=== PATIENT | female | born 1975 | race Caucasian/White ===

== ENCOUNTER 2016-11-23 20:09 | Emergency (ER) | payer OTHER ==
[~2016-11-23] VITALS: Ht 160 cm; Wt 104.0 kg
[~2016-11-23 20:09] MED LIST: BACTDS PO; CEPH-443 PO; HYDR-3498 PO; IBUP800T25 PO
[2016-11-23 20:27] VITALS: Ht 160 cm; Wt 104.0 kg
[2016-11-23] MEDS ORDERED: ALBUTEROL 0.083% (NEB) 2.5 MG/3 ML AMP HHN ONE (22:30)
[2016-11-23] MEDS ORDERED: ACETAMINOPHEN 325 MG TAB PO ONE (22:30)
[2016-11-23] MEDS ORDERED: IPRATROPIUM (NEB) 0.5 MG/2.5 ML AMP HHN ONE (22:30)
--- NOTE | 2016-11-23 23:58 | RADRPT ---
PROCEDURE: XR Chest. CLINICAL INDICATION: cough, fever TECHNIQUE: Single AP portable chest COMPARISON: None. FINDINGS: The cardiomediastinal silhouette is within normal limits..The lungs are clear though pleural effusio n or focal consolidation. The osseous structures and soft tissues are unremarkable. IMPRESSION: No evidence for active cardiopulmonary disease. RPTAT:AAJJ Jeremias Serrato Physician Date Time Electronically viewed and signed by Physician Antonella on 11/23/2016 23:58 EMIL/
--- NOTE | 2016-11-24 00:17 | ERD ---
ER Documentation Chief Complaint Date/Time DATE: 11/24/16 TIME: 00:16 Chief Complaint PRODUCTIVE COUGH, CONGESTION AND FEVERS OF UP TO 102 AT HOME X 2 WKS. HPI Patient is a 41-year-old female who presents to the ED with a productive and dry cough for 2 weeks. She states that she also has nasal congestion and fevers. She said that her last fever was 102.2 days ago. She denies fevers today. She denies abdominal pain, nausea or diarrhea. She states that she has shortness of breath due to her cough. She states that she also has a runny nose. She denies neck pain or stiffness or headache. She also states that she had 2 episodes of non bloody non bilious emesis. She denies chest pain or difficulty breathing. She denies back pain. She denies leg pain or swelling. She denies chest pain, shortness of breath or difficulty breathing. She denies recent travel or recent surgery or use of OCPs. ROS All systems reviewed and are negative except as per history of present illness. Medications Home Meds Active Scripts Prednisone* (Prednisone*) 20 Mg Tab, 40 MG PO DAILY for 4 Days, TAB Prov:SAMUEL GIVENS PA-C 11/24/16 Azithromycin* (Zithromax*) 250 Mg Tablet, 250 MG PO .MariumPACK DIRECTED, #6 TAB TAKE 500 MG (2 TABS) THE FIRST DAY THEN 250 MG (1 TAB) DAYS 2-5 Prov:SAMUEL GIVENS PA-C 11/24/16 Benzonatate* (Tessalon Perle*) 100 Mg Capsule, 100 MG PO Q8H Y for COUGH for 14 Days, CAP Prov:SAMUEL GIVENS PA-C 11/24/16 Dextromethorphan Hb-Promethazine Hcl (Promethazine DM Syrup) 473 Ml Syrup, 2.5 ML PO Q6H Y for COUGH, #4 OZ Prov:SAMUEL GIVENS PA-C 11/24/16 Hydrocodone Bit-Acetaminophen* ([place]*) 5-325 Mg Tab, 1 TAB PO Q6 Y for PAIN, # 20 TAB Prov:TRISTEN ROBBINS 03/16/16 Hydrocodone Bit-Acetaminophen* ([place]*) 5-325 Mg Tab, 1 TAB PO Q6 Y for SEVERE PAIN LEVEL 7-10, #7 TAB Prov:ARIEL MCNEAL. DIRECTOR [employer] 03/14/16 Cephalexin* (Keflex*) 500 Mg Capsule, 500 MG PO QID for 7 Days, CAP Prov:ARIEL MCNEAL X. DIRECT[employer] 03/14/16 Sulfamethoxazole-Trimethoprim* (Bactrim* DS) 800-160 Mg Tab, 1 TAB PO BID for 7 Days, TAB Prov:ARIEL MCNEAL X. DIRECT[employer] 03/14/16 Ibuprofen* (Motrin*) 800 Mg Tab, 800 MG PO Q8, #30 TAB Prov:ARIEL MCNEAL. DIRECTOR [employer] 03/14/16 Allergies Allergies: Coded Allergies: No Known Allergy (Unverified , 11/26/12) PMhx/Soc Medical and Surgical Hx: pt denies Medical Hx, pt denies Surgical Hx History of Surgery: No Anesthesia Reaction: No Hx Neurological Disorder: No Hx Respiratory Disorders: No Hx Cardiac Disorders: No Hx Psychiatric Problems: No Hx Miscellaneous Medical Probl: No Hx Alcohol Use: No Hx Substance Use: No Hx Tobacco Use: No Physical Exam Vitals Vital Signs Date Time Temp Pulse Resp B/P Pulse Ox O2 Delivery O2 Flow Rate FiO2 11/24/16 01:56 99.3 78 20 132/67 100 Room Air 11/23/16 23:20 100.1 107 20 99/54 98 Room Air 11/23/16 22:59 85 20 97 21 11/23/16 20:27 100.0 111 19 134/80 96 Physical Exam GENERAL: Well-developed, well-nourished female. Appears in no acute distress. HEAD: Normocephalic, atraumatic. EYES: Pupils are equally reactive bilaterally. EOMs grossly intact. No conjunctival erythema. ENT: Moist mucous membranes. No uvula deviation. No kissing tonsils. No exudates. NECK: Supple. No lymphadenopathy or thyromegaly. No meningismus. negative kernig. negative brudinski. LUNG: Clear to auscultation bilaterally. No rhonchi, rales or coarse breath sounds. wheezing bilateral HEART: Regular rate and rhythm. No murmurs, rubs or gallops. ABDOMEN: No scars, ecchymosis or rashes noted. Soft, nontender, and nondistended. Positive bowel sounds in all four quadrants. No rebound tenderness , no guarding. (-) McBurneys point tenderness. No CVA tenderness. BACK: No midline tenderness. Extremities: Equal pulses bilaterally. No peripheral clubbing, cyanosis or edema. No unilateral leg swelling. negative osvaldo sign. NEUROLOGIC: Alert and oriented. Moving all four extremities. 5/5 strength in all extremities. Normal speech. Steady gait. SKIN: Normal color. Warm and dry. No rashes or lesions. Capillary refill < 2 seconds Results 24 hrs Current Medications Medications (Trade) Dose Ordered Sig/Elle Route PRN Reason Start Time Stop Time Status Last Admin Dose Admin Acetaminophen (Tylenol Tab) 650 mg ONCE ONCE PO 11/23/16 22:30 11/23/16 22:32 DC 11/23/16 22:45 Albuterol (Proventil 0.083% (Neb)) 5 mg ONCE ONCE HHN 11/23/16 22:30 11/23/16 22:32 DC 11/23/16 22:59 Ipratropium [place] (Atrovent 0.02% (Neb)) 0.5 mg ONCE ONCE HHN 11/23/16 22:30 11/23/16 22:32 DC 11/23/16 22:58 Acetaminophen (Tylenol Supp) 650 mg ONCE ONCE [place] 11/24/16 00:30 11/24/16 00:30 DC Acetaminophen (Tylenol Tab) 650 mg ONCE ONCE PO 11/24/16 00:30 11/24/16 00:31 DC 11/24/16 00:46 Procedures/MDM ER COURSE: I kept the patient and/or family informed of laboratory and diagnostic imaging results throughout the emergency room course. EKG, MONITORS, & DIAGNOSTIC IMAGING: [place] [id number] Radiology Main Line: [phone] DIAGNOSTIC IMAGING REPORT Patient: GANESH GILLETTE : 1975 Age: 41 Sex: F MR #: [id number] DOS: 11/23/162227 Ordering MD: SAMUEL GIVENS PA-C Location: [facility] Room/Bed: PROCEDURE: XR Chest. CLINICAL INDICATION: cough, fever TECHNIQUE: Single AP portable chest COMPARISON: None. FINDINGS: The cardiomediastinal silhouette is within normal limits..The lungs are clear though pleural effusion or focal consolidation. The osseous structures and soft tissues are unremarkable. IMPRESSION: No evidence for active cardiopulmonary disease. RPTAT:AAJJ Physician Antonella Date Time Electronically viewed and signed by Physician Antonella on 11/23/2016 23:58 EMIL/ CC: SAMUEL GIVENS PA-C PROCEDURES: RT consult. Albuterol and atrovent given. Patient stated improvement in symptoms. MEDICATIONS: Tylenol. Breathing treatment. Patient tolerated medication well with no adverse reaction. Patient seen improvement in her coughing symptoms after breathing treatment. MEDICAL DECISION MAKING: This is a 41-year-old female who presents with cough x 2 weeks Vital signs were reviewed. Patient has temperature of 100.1 Patient is not hypoxic. Patient is not toxic or ill-appearing. Patient likely has cough of uncertain etiology. Low suspicion for pneumonia, PE, pneumothorax, ACS, epiglottitis, obstruction, TB, pertussis, meningitis, sepsis. Her increase in heart rate of 107 is likely related to vomiting and coughing and her fever. I have low suspicion for PE or DVT. Patient has not had recent travel, no leg pain or swelling. Cannot rule out PERC criteria as patient has a increase in heart rate of 107. However I have low suspicion for PE or DVT. I have consulted with Dr. Aranda regarding this patient who has reviewed her vitals and imaging studies. Low suspicion for cardiac emergencies. Low suspicion for ACS, PE, AAA, dissection, DVT DISCHARGE: At this time, patient is stable for discharge and outpatient management with no new complaints during the ER course. Patient was sent home with azithromycin, tessalon perles, promethazine dm and prednisone. Patient will be discharged home with instructions to recheck for new or worsening symptoms such as fever, nausea, weakness, LOC and to follow up with primary care in the next 1-2 days. Patient was advised to return to the ER for any new or worsening symptoms. Plan was discussed and patient and/or family understands and agrees. Home instructions were given. Departure Diagnosis: Primary Impression: Cough Condition: Stable SAMUEL GIVENS PA-C Nov 24, 2016 00:17
[2016-11-24] MEDS ORDERED: BENZ100C70 PO (00:24)
[2016-11-24] MEDS ORDERED: AZIT250T94 PO (00:24)
[2016-11-24] MEDS ORDERED: D-ME473S18 PO (00:24)
[2016-11-24] MEDS ORDERED: ACETAMINOPHEN 325 MG SUPP PR ONE (00:30)
[2016-11-24] MEDS ORDERED: ACETAMINOPHEN 325 MG TAB PO ONE (00:30)
[2016-11-24] MEDS ORDERED: PRED20TA PO (00:32)
[2016-11-24 01:56] VITALS: BP 132/67; PULSE 78; RESP 20; TEMP 99.3
== END 2016-11-24 02:03 | disposition home or self-care (01) ==
LOC: FTE 20:09
DX: R05 Cough (principal)
CPT/HCPCS: 71010; 94664; Z7502; Z7610

== ENCOUNTER 2016-12-31 10:07 | Emergency (ER) | payer OTHER ==
[~2016-12-31] VITALS: Ht 160 cm; Wt 100.0 kg
[~2016-12-31 10:07] MED LIST changes: +AZIT250T94 PO; +BENZ100C70 PO; +D-ME473S18 PO; +PRED20TA PO
[2016-12-31 10:09] VITALS: Ht 160 cm; Wt 100.0 kg
[2016-12-31] MEDS ORDERED: ALBUTEROL 0.5% (NEB) 2.5 MG/0.5 ML AMP HHN STA (10:19)
[2016-12-31] MEDS ORDERED: IPRATROPIUM (NEB) 0.5 MG/2.5 ML AMP HHN ONE (10:30)
[2016-12-31] MEDS ORDERED: METHYLPREDNISOLONE 125 MG INJ IM ONE (10:30)
--- NOTE | 2016-12-31 11:01 | RADRPT ---
PROCEDURE: XR Chest. CLINICAL INDICATION: Cough, shortness of breath TECHNIQUE: Single frontal view of the chest was obtained COMPARISON: 11/23/16 FINDINGS: The heart and mediastinum are within normal limits. The lungs are clear. There is no pleural effusion or pneumothorax. RPTAT: AA IMPRESSION: No acute disease. .Vic Fournier MD, MD Date Time Electronically viewed and signed by .Vic Fournier MD, MD on 12/31/2016 11:00 .S/
[2016-12-31] MEDS ORDERED: PRED20TA PO (11:36)
[2016-12-31] MEDS ORDERED: ALBU18HF INHALATION (11:36)
--- NOTE | 2016-12-31 11:38 | ERD ---
ER Documentation Chief Complaint Date/Time DATE: 12/31/16 TIME: 11:37 Chief Complaint cough , sob x 3days HPI This 41-year-old female presents with complaints of coughing spells and possible wheezing for last 3 days. She denies fevers or chest pain. She states that she does have productive sputum. She denies hemoptysis. Denies vomiting, abdominal pain, chest pain. ROS All systems reviewed and are negative except as per history of present illness. Medications Home Meds Active Scripts Albuterol Sulfate* (Ventolin HFA*) 18 Gm Hfa.aer.ad, 2 PUFF INHALATION Q4H, #1 INHALER Prov:AILYN DUTTA MD 12/31/16 Prednisone* (Prednisone*) 20 Mg Tab, 60 MG PO DAILY for 5 Days, TAB 60 mg by mouth for 2 days then 40 mg by mouth for 3 days Prov:AILYN DUTTA MD 12/31/16 Prednisone* (Prednisone*) 20 Mg Tab, 40 MG PO DAILY for 4 Days, TAB Prov:SAMUEL GIVENS PA-C 11/24/16 Azithromycin* (Zithromax*) 250 Mg Tablet, 250 MG PO .ZPACK DIRECTED, #6 TAB TAKE 500 MG (2 TABS) THE FIRST DAY THEN 250 MG (1 TAB) DAYS 2-5 Prov:SAMUEL GIVENS PA-C 11/24/16 Benzonatate* (Tessalon Perle*) 100 Mg Capsule, 100 MG PO Q8H Y for COUGH for 14 Days, CAP Prov:SMAUEL GIVENS PA-C 11/24/16 Dextromethorphan Hb-Promethazine Hcl (Promethazine DM Syrup) 473 Ml Syrup, 2.5 ML PO Q6H Y for COUGH, #4 OZ Prov:SAMUEL GIVENSC 11/24/16 Hydrocodone Bit-Acetaminophen* ([place]*) 5-325 Mg Tab, 1 TAB PO Q6 Y for PAIN, # 20 TAB Prov:TRISTEN ROBBINS 03/16/16 Hydrocodone Bit-Acetaminophen* ([place]*) 5-325 Mg Tab, 1 TAB PO Q6 Y for SEVERE PAIN LEVEL 7-10, #7 TAB Prov:ARIEL MCNEAL ENGLISH L[employer]ER 03/14/16 Cephalexin* (Keflex*) 500 Mg Capsule, 500 MG PO QID for 7 Days, CAP Prov:ARIEL MCNEAL. ENGLISH [employer]ER 03/14/16 Sulfamethoxazole-Trimethoprim* (Bactrim* DS) 800-160 Mg Tab, 1 TAB PO BID for 7 Days, TAB Prov:FREDISARIEL Scarlet. ENGLISH [employer]ER 03/14/16 Ibuprofen* (Motrin*) 800 Mg Tab, 800 MG PO Q8, #30 TAB Prov:ARIEL MCNEAL. ENGLISH [employer]ER 03/14/16 Allergies Allergies: Coded Allergies: No Known Allergy (Unverified , 11/26/12) PMhx/Soc History of Surgery: No Anesthesia Reaction: No Hx Neurological Disorder: No Hx Respiratory Disorders: No Hx Cardiac Disorders: No Hx Psychiatric Problems: No Hx Miscellaneous Medical Probl: No Hx Alcohol Use: No Hx Substance Use: No Hx Tobacco Use: No Physical Exam Vitals Vital Signs Date Time Temp Pulse Resp B/P Pulse Ox O2 Delivery O2 Flow Rate FiO2 12/31/16 10:48 86 20 98 Pulse Ox 8.0 12/31/16 10:09 98.2 68 22 122/72 93 Physical Exam Const: [] Alert, [id number] per Head: Atraumatic Eyes: Normal Conjunctiva ENT: Normal External Ears, Nose and Mouth. Neck: Full range of motion..~ No meningismus. Resp: Clear to auscultation bilaterally. Diffuse wheezing without rales or retractions. Cardio: Regular rate and rhythm, no murmurs Abd: Soft, non tender, non distended. Normal bowel sounds Skin: No petechiae or rashes Back: No midline or flank tenderness Ext: No cyanosis, or edema Neur: Awake and alert Psych: Normal Mood and Affect Results 24 hrs Current Medications Medications (Trade) Dose Ordered Sig/Elle Route PRN Reason Start Time Stop Time Status Last Admin Dose Admin Methylprednisolone Sodium Succinate (Solu-Medrol) 125 mg ONCE ONCE IM 12/31/16 10:30 12/31/16 10:31 DC 12/31/16 10:24 Albuterol (Proventil 0.5% (Neb)) 5 mg ONCE STAT HHN 12/31/16 10:19 12/31/16 10:21 DC 12/31/16 10:45 Ipratropium [place] (Atrovent 0.02% (Neb)) 0.5 mg ONCE ONCE HHN 12/31/16 10:30 12/31/16 10:31 DC 12/31/16 10:45 Procedures/MDM Chest X-ray 1V Interpreted by me: Soft Tissue: No acute abnormalities Bones: No acute abnormalities Mediastinum/Cardiac Silhouette/Lungs: [No acute abnormalities]. Impression- normal 1 view chest x-ray Patient was given Solu-Medrol 125 mg IM. Patient was given albuterol 5 mg hand- held nebulizer as well as Atrovent and had improved breath sounds felt much better after observation treatment. Patient has signs and symptoms of acute URI or bronchitis with wheezing. She has no history of asthma. She will treated with a course of prednisone, Ventolin and Zithromax at home. Patient shows no evidence of hypoxemia, respiratory distress or chest pain. The patient was stable with no new complaints during the ER course. Clinically, there is no current evidence to suggest meningitis, sepsis, acute abdomen, pneumonia, acute coronary syndrome, pulmonary embolism, or any other emergent condition appearing to require further evaluation or hospitalization. The patient should certainly return for any new or worsening symptoms per the aftercare instructions. They should otherwise follow-up with her primary care doctor for reevaluation this week. Departure Diagnosis: Primary Impression: Wheezing Additional Impression: URI, acute Condition: Stable Patient Instructions: Uri, Viral W/ Wheezing (Adult) Additional Instructions: Likely viral illness may last 3-5 days. Recheck for new or worsening symptoms or primary care doctor. AILYN DUTTA MD Dec 31, 2016 11:38
[2016-12-31] MEDS ORDERED: AZIT250T94 PO (11:39)
[2016-12-31 12:10] VITALS: BP 124/70; PULSE 74; RESP 20; TEMP 98.4
== END 2016-12-31 12:10 | disposition home or self-care (01) ==
LOC: FTE 10:07
DX: R06.2 Wheezing (principal); J06.9 Acute upper respiratory infection, unspecified
CPT/HCPCS: 71010; 94664; 94760; 96372; J2930; Z7502; Z7610

== ENCOUNTER 2017-01-17 20:35 | Emergency (ER) | payer OTHER ==
[~2017-01-17] VITALS: Ht 160 cm; Wt 81.1 kg
[~2017-01-17 20:35] MED LIST changes: +ALBU18HF INHALATION
[2017-01-17 21:43] VITALS: Ht 160 cm; Wt 81.1 kg
[2017-01-17] MEDS ORDERED: METHYLPREDNISOLONE 125 MG INJ IM STA (23:30)
[2017-01-17] MEDS ORDERED: ALBUTEROL 0.5% (NEB) 2.5 MG/0.5 ML AMP INH STA (23:30)
[2017-01-17] MEDS ORDERED: IPRATROPIUM (NEB) 0.5 MG/2.5 ML AMP NEB STA (23:30)
--- NOTE | 2017-01-17 23:41 | ERD ---
ER Documentation Chief Complaint Date/Time DATE: 01/17/17 TIME: 23:38 Chief Complaint COUGH/SOB FEVER X 3 DAYS HPI 41-year-old female presents here in emergency department for complaints of cough and wheezing for 3 days, fever on-and-off. Patient has been having dry cough, does not cough up any phlegm or blood. Patient has wheezing episodes and episodes of shortness of breath. Patient was seen here 3 weeks ago, was diagnosed possible bronchitis, finished azithromycin, was using inhaler only with mild relief. Patient does not have any sick contacts. Patient denies any dyspnea on exertion or dyspnea on lying down. Patient denies any palpitations or regular heartbeat. Patient denies any dizziness. ROS All systems reviewed and are negative except as per history of present illness. Medications Home Meds Active Scripts Azithromycin* (Zithromax*) 250 Mg Tablet, 250 MG PO .ZPACK DIRECTED, #6 TAB TAKE 500 MG (2 TABS) THE FIRST DAY THEN 250 MG (1 TAB) DAYS 2-5 Prov:AILYN DUTTA MD 12/31/16 Albuterol Sulfate* (Ventolin HFA*) 18 Gm Hfa.aer.ad, 2 PUFF INHALATION Q4H, #1 INHALER Prov:AILYN DUTTA MD 12/31/16 Prednisone* (Prednisone*) 20 Mg Tab, 60 MG PO DAILY for 5 Days, TAB 60 mg by mouth for 2 days then 40 mg by mouth for 3 days Prov:AILYN DUTTA MD 12/31/16 Prednisone* (Prednisone*) 20 Mg Tab, 40 MG PO DAILY for 4 Days, TAB Prov:SAMUEL GIVENS PA-C 11/24/16 Azithromycin* (Zithromax*) 250 Mg Tablet, 250 MG PO .ZPACK DIRECTED, #6 TAB TAKE 500 MG (2 TABS) THE FIRST DAY THEN 250 MG (1 TAB) DAYS 2-5 Prov:SAMUEL GIVENS PA-C 11/24/16 Benzonatate* (Tessalon Perle*) 100 Mg Capsule, 100 MG PO Q8H Y for COUGH for 14 Days, CAP Prov:SAMUEL GIVENS PA-C 11/24/16 Dextromethorphan Hb-Promethazine Hcl (Promethazine DM Syrup) 473 Ml Syrup, 2.5 ML PO Q6H Y for COUGH, #4 OZ Prov:SAMUEL GIVENSC 11/24/16 Hydrocodone Bit-Acetaminophen* ([place]*) 5-325 Mg Tab, 1 TAB PO Q6 Y for PAIN, # 20 TAB Prov:TRISTEN ROBBINS 03/16/16 Hydrocodone Bit-Acetaminophen* ([place]*) 5-325 Mg Tab, 1 TAB PO Q6 Y for SEVERE PAIN LEVEL 7-10, #7 TAB Prov:AREIL MCNEAL. INSPECTOR [employer]AGER 03/14/16 Cephalexin* (Keflex*) 500 Mg Capsule, 500 MG PO QID for 7 Days, CAP Prov:FREDISARIEL X. INSPECTOR AND [employer]ER 03/14/16 Sulfamethoxazole-Trimethoprim* (Bactrim* DS) 800-160 Mg Tab, 1 TAB PO BID for 7 Days, TAB Prov:MARGRET MCNEALEN X. INSPECTOR AND [employer] P[employer]AGER 03/14/16 Ibuprofen* (Motrin*) 800 Mg Tab, 800 MG PO Q8, #30 TAB Prov:ARIEL MCNEAL. INSPECTOR AND [employer]ER 03/14/16 Allergies Allergies: Coded Allergies: No Known Allergy (Unverified , 01/17/17) PMhx/Soc Medical and Surgical Hx: pt denies Medical Hx, pt denies Surgical Hx History of Surgery: No Anesthesia Reaction: No Hx Neurological Disorder: No Hx Respiratory Disorders: No Hx Cardiac Disorders: No Hx Psychiatric Problems: No Hx Miscellaneous Medical Probl: No Hx Alcohol Use: No Hx Substance Use: No Hx Tobacco Use: No Smoking Status: Never smoker FmHx Family History: No coronary disease, No diabetes, No other Physical Exam Vitals Vital Signs Date Time Temp Pulse Resp B/P Pulse Ox O2 Delivery O2 Flow Rate FiO2 01/17/17 23:47 98 20 97 21 01/17/17 21:43 98.9 99 24 116/69 95 Physical Exam GENERAL: The patient is well developed and appropriate for usual state of health, in no apparent distress. CHEST: Clear to auscultation bilaterally. There are no rales, wheezes or rhonchi. HEART: Regular rate and rhythm. No murmurs, clicks, rubs or gallops. No S3 or S4. ABDOMEN: Soft, nontender and nondistended. Good bowel sounds. No rebound or guarding. No gross peritonitis. No gross organomegaly or masses. No Man sign or McBurney point tenderness. BACK: No midline or flank tenderness. EXTREMITIES: Equal pulses bilaterally. There is no peripheral clubbing, cyanosis or edema. No focal swelling or erythema. Full range of motion. Grossly neurovascularly intact. NEURO: Alert and oriented. Cranial nerves 2-12 intact. Motor strength in all 4 extremities with 5/5 strength. Sensation grossly intact. Normal speech and gait. SKIN: There is no apparent rash or petechia. The skin is warm and dry. HEMATOLOGIC AND LYMPHATIC: There is no evidence of excessive bruising or lymphedema. No gross cervical, axillary, or inguinal lymphadenopathy. Results 24 hrs Current Medications Medications (Trade) Dose Ordered Sig/Elle Route PRN Reason Start Time Stop Time Status Last Admin Dose Admin Ipratropium [place] (Atrovent 0.02% (Neb)) 0.5 mg ONCE STAT NEB 01/17/17 23:30 01/17/17 23:31 DC 01/17/17 23:47 Albuterol (Proventil 0.5% (Neb)) 10 mg ONCE STAT INH 01/17/17 23:30 01/17/17 23:31 DC 01/17/17 23:47 Methylprednisolone Sodium Succinate (Solu-Medrol) 125 mg ONCE STAT IM 01/17/17 23:30 01/17/17 23:31 DC 01/18/17 00:09 Breathing treatment of albuterol and Atrovent Solu-Medrol IM injection was given here in emergency department, after treatment, patient's lungs sounds are clear and patient's oxygenation is better. Patient verbalized feeling much better. PROCEDURE: XR Chest. CLINICAL INDICATION: Exacerbation of asthma. TECHNIQUE: Portable AP view of the chest was obtained. COMPARISON: 12/31/2016 FINDINGS: The cardiomediastinal silhouette is within normal limits. The lungs are clear. The diaphragm is normal in position without hyperinflation. There is no evidence for pleural effusion, pneumothorax or pulmonary vascular congestion. The osseous structures are intact with no evidence for acute abnormality. RPTAT:ASIM IMPRESSION: No evidence for acute intrathoracic pathology or change from 12/31/2016. Physician Tiesha Date Time Electronically viewed and signed by Babak Kessler Physician on 01/18/2017 00:27 JR/ CC: JAKOB SKAGGS NP Procedures/MDM Medical Decision Making: Patient symptoms are most likely consistent with acute bronchitis, which viral in origin. There is low suspicion for Pneumonia at this time since patients lungs sounds are clear, patient O2 saturation is normal and patient doesnt show any respiratory distress. Patients chest xray doesnt show infiltrates or any other cardiopulmonary emergencies at this time. There is low suspicion for other cardiopulmonary emergencies at this time such as CHF, Pulmonary Embolism, Pneumothorax, Aortic Aneurysm or any other cardiopulmonary emergencies at this time. There is low suspicion for sepsis. Patient appears well and is hemodynamically stable. Fever is controlled with medicines. Disposition: Home. Condition: Stable Prescriptions: Zyrtec ibuprofen guaifenesin with codeine albuterol prednisone Instructions: Patient is advised to take medications as prescribed. Patient is advised to rest. Patient advised to increase fluid intake, do humidifier at home and if possible, do salt water gargles. Patient is advised that if symptoms are worse, shortness of breath, uncontrolled fever, stridor, vomiting, worst signs and symptoms to return to emergency department immediately. Otherwise, patient is advised to follow up with primary doctor in 5-7 days. Departure Diagnosis: Primary Impression: Acute bronchitis Bronchitis organism: unspecified organism Qualified Code: J20.9 - Acute bronchitis, unspecified organism Condition: Stable Patient Instructions: Bronchitis With Wheezing (Adult) Additional Instructions: Patient is advised to take medications as prescribed. Patient is advised to rest. Patient advised to increase fluid intake, do humidifier at home and if possible, do salt water gargles. Patient is advised that if symptoms are worse, shortness of breath, uncontrolled fever, stridor, vomiting, worst signs and symptoms to return to emergency department immediately. Otherwise, patient is advised to follow up with primary doctor in 5-7 days. JAKOB SKAGGS NP Jan 17, 2017 23:40
--- NOTE | 2017-01-18 00:27 | RADRPT ---
PROCEDURE: XR Chest. CLINICAL INDICATION: Exacerbation of asthma. TECHNIQUE: Portable AP view of the chest was obtained. COMPARISON: 12/31/2016 FINDINGS: The cardiomediastinal silhouette is within normal limits. The lungs are clear. The diaphragm is nor mal in position without hyperinflation. There is no evidence for pleural effusion, pneumothorax or pulmonary vascular congestion. The osseous structures are intact with no evidence for acute abnorma lity. RPTAT:HJJR IMPRESSION: No evidence for acute intrathoracic pathology or change from 12/31/2016. Physician Tiesha Date Time Electronically viewed and signed by Physician Tiesha on 01/18/2017 00:27 JR/
[2017-01-18] MEDS ORDERED: PRED50TA PO (00:43)
[2017-01-18] MEDS ORDERED: ALBU8.5H3 INH (00:43)
[2017-01-18] MEDS ORDERED: GUAI473L22 PO (00:43)
[2017-01-18] MEDS ORDERED: IBUP-1542 PO (00:43)
[2017-01-18] MEDS ORDERED: CETI10CA PO (00:43)
[2017-01-18 01:14] VITALS: BP 118/67; PULSE 100; RESP 16; TEMP 97.9
== END 2017-01-18 01:15 | disposition home or self-care (01) ==
LOC: FTE 20:35
DX: J20.9 Acute bronchitis, unspecified (principal)
CPT/HCPCS: 71010; 94644; 96372; J2930; Z7502; Z7610

== ENCOUNTER 2017-02-21 12:46 | Emergency (ER) | payer OTHER ==
[~2017-02-21] VITALS: Ht 160 cm; Wt 89.4 kg
[~2017-02-21 12:46] MED LIST changes: +ALBU8.5H3 INH; +CETI10CA PO; +GUAI473L22 PO; +IBUP-1542 PO; +PRED50TA PO
[2017-02-21 12:51] VITALS: Ht 160 cm; Wt 89.4 kg
[2017-02-21] MEDS ORDERED: ALBUTEROL 0.083% (NEB) 2.5 MG/3 ML AMP HHN STA (14:14)
[2017-02-21] MEDS ORDERED: IPRATROPIUM (NEB) 0.5 MG/2.5 ML AMP HHN ONE (14:30)
--- NOTE | 2017-02-21 15:08 | ERD ---
ER Documentation Chief Complaint Date/Time DATE: 02/21/17 TIME: 15:06 Chief Complaint REFILL OF INHALER HPI This is a 41-year-old female that presents to the ER with a cough for the last 2 days. Patient states that she has been experiencing chest pain whenever she coughs whenever she takes a deep breath in. She also complains of shortness of breath and wheezing. Patient was here a month ago and was given an inhaler however she has been out of her inhaler. Patient admits to fever at home. Cough is constant and productive. It is worse at night. There are no sick contacts at home. ROS 12 point review of systems was done, all negative except per HPI. Medications Home Meds Active Scripts Hydrocortisone* Topical (Hydrocortisone* Topical) 1%-28.35 Gm Cream..g., 1 APPLIC TOP Q6 Y for ITCHING, #1 TUB Prov:TRISTEN ROBBINS 02/21/17 Azithromycin* (Zithromax*) 250 Mg Tablet, 250 MG PO .ZPACK DIRECTED, #6 TAB TAKE 500 MG (2 TABS) THE FIRST DAY THEN 250 MG (1 TAB) DAYS 2-5 Prov:TRISTEN ROBBINS 02/21/17 Albuterol Sulfate* (Proair HFA*) 8.5 Gm Hfa.aer.ad, 2 PUFF INH Q4, #1 INHALER Prov:TRISTEN ROBBINS 02/21/17 Ibuprofen* (Motrin*) 600 Mg Tab, 600 MG PO Q6H Y for PAIN AND OR ELEVATED TEMP, #30 TAB Prov:JAKOB SKAGGS NP 01/18/17 Cetirizine Hcl* (Zyrtec*) 10 Mg Capsule, 10 MG PO DAILY, #30 TAB.CHEW Prov:JAKOB SKAGGS NP 01/18/17 Guaifenesin-Codeine Phosphate* (Guaifenesin* AC Cough Syrup) 473 Ml Liquid, 10 ML PO Q4H Y for COUGH, #120 ML Prov:JAKOB SKAGGS NP 01/18/17 Prednisone* (Prednisone*) 50 Mg Tablet, 50 MG PO DAILY, #5 TAB Prov:JAKOB SKAGGS NP 01/18/17 Albuterol Sulfate* (Proair HFA*) 8.5 Gm Hfa.aer.ad, 2 PUFF INH Q4H Y for WHEEZING AND SOB, #1 INHALER Prov:JAKOB SKAGGS NP 01/18/17 Azithromycin* (Zithromax*) 250 Mg Tablet, 250 MG PO .ZPACK DIRECTED, #6 TAB TAKE 500 MG (2 TABS) THE FIRST DAY THEN 250 MG (1 TAB) DAYS 2-5 Prov:AILYN DUTTA MD 12/31/16 Albuterol Sulfate* (Ventolin HFA*) 18 Gm Hfa.aer.ad, 2 PUFF INHALATION Q4H, #1 INHALER Prov:AILYN DUTTA MD 12/31/16 Prednisone* (Prednisone*) 20 Mg Tab, 60 MG PO DAILY for 5 Days, TAB 60 mg by mouth for 2 days then 40 mg by mouth for 3 days Prov:AILYN DUTTA MD 12/31/16 Prednisone* (Prednisone*) 20 Mg Tab, 40 MG PO DAILY for 4 Days, TAB Prov:SAMUEL GIVENS PA-C 11/24/16 Azithromycin* (Zithromax*) 250 Mg Tablet, 250 MG PO .ZPACK DIRECTED, #6 TAB TAKE 500 MG (2 TABS) THE FIRST DAY THEN 250 MG (1 TAB) DAYS 2-5 Prov:SAMUEL GIVENS PA-C 11/24/16 Benzonatate* (Tessalon Perle*) 100 Mg Capsule, 100 MG PO Q8H Y for COUGH for 14 Days, CAP Prov:SAMUEL GIVENS PA-C 11/24/16 Dextromethorphan Hb-Promethazine Hcl (Promethazine DM Syrup) 473 Ml Syrup, 2.5 ML PO Q6H Y for COUGH, #4 OZ Prov:SAMUEL GIVENS PA-C 11/24/16 Hydrocodone Bit-Acetaminophen* ([place]*) 5-325 Mg Tab, 1 TAB PO Q6 Y for PAIN, # 20 TAB Prov:TRISTEN ROBBINS 03/16/16 Hydrocodone Bit-Acetaminophen* ([place]*) 5-325 Mg Tab, 1 TAB PO Q6 Y for SEVERE PAIN LEVEL 7-10, #7 TAB Prov:ARIEL MCNEAL NP 03/14/16 Cephalexin* (Keflex*) 500 Mg Capsule, 500 MG PO QID for 7 Days, CAP Prov:ARIEL MCNEAL. MANAGER OF MERCHANDISING 03/14/16 Sulfamethoxazole-Trimethoprim* (Bactrim* DS) 800-160 Mg Tab, 1 TAB PO BID for 7 Days, TAB Prov:FREDISARIEL X. MANAGER OF MERCHANDISING 03/14/16 Ibuprofen* (Motrin*) 800 Mg Tab, 800 MG PO Q8, #30 TAB Prov:ARIEL MCNEAL. MANAGER OF MERCHANDISING 03/14/16 Allergies Allergies: Coded Allergies: No Known Allergy (Unverified , 02/21/17) PMhx/Soc Medical and Surgical Hx: pt denies Medical Hx, pt denies Surgical Hx History of Surgery: No Anesthesia Reaction: No Hx Neurological Disorder: No Hx Respiratory Disorders: No Hx Cardiac Disorders: No Hx Psychiatric Problems: No Hx Miscellaneous Medical Probl: No Hx Alcohol Use: No Hx Substance Use: No Hx Tobacco Use: No Smoking Status: Never smoker Physical Exam Vitals Vital Signs Date Time Temp Pulse Resp B/P Pulse Ox O2 Delivery O2 Flow Rate FiO2 02/21/17 14:34 69 22 98 21 02/21/17 12:51 98.1 60 18 115/60 99 Physical Exam GENERAL: The patient is well developed and appropriate for usual state of health , in no apparent distress. NECK: No cervical lymphadenopathy. HEENT: Atraumatic. Not erythematous tympanic membranes, mild tonsillar erythema with no exudates, uvular deviation or kissing tonsils. CHEST: Excitatory wheezes in all lung west. No rales rhonchi or crackles. HEART: Regular rate and rhythm. No murmurs, clicks, rubs or gallops. NEURO: Alert and oriented. SKIN: The skin is warm and dry. Results 24 hrs Current Medications Medications (Trade) Dose Ordered Sig/Elle Route PRN Reason Start Time Stop Time Status Last Admin Dose Admin Albuterol (Proventil 0.083% (Neb)) 5 mg ONCE STAT HHN 02/21/17 14:14 02/21/17 14:16 DC 02/21/17 14:31 Ipratropium [place] (Atrovent 0.02% (Neb)) 0.5 mg ONCE ONCE HHN 02/21/17 14:30 02/21/17 14:31 DC 02/21/17 14:33 Procedures/MDM Differential diagnosis includes but is not limited to; Viral URI, allergic rhinitis, bronchitis, pertussis,pneumonia. Patient will be treated for possible bronchitis with wheezing. Clinical suspicion for pneumonia is low as patient appears well, is not hypoxic or in any respiratory distress. Suspicion for pulmonary embolism is low patient does not have any PERC criteria. Suspicion for cardiac etiology is low. Patient's EKG was read by Dr. Guan 66bpm no ST elevation, no t wave inversion. Additionally, patients physical examination is benign. Plan was discussed with patient they understand and agree. Patient needs to follow up with PCP in 1-2 days or return to ER sooner if symptoms worsen. Departure Diagnosis: Primary Impression: Bronchitis Condition: Stable TRISTEN ROBBINS Feb 21, 2017 15:08
--- NOTE | 2017-02-21 15:24 | RADRPT ---
PROCEDURE: XR Chest. CLINICAL INDICATION: Chest pain, cough TECHNIQUE: Single frontal view of the chest was obtained COMPARISON: 01/18/2017 FINDINGS: The heart and mediastinum are within normal limits. The lungs are clear. There is no pleural effusion or pneumothorax. IMPRESSION: No definite abnormalities are identified. RPTAT:AAJJ Torsten Bruce Physician Date Time Electronically viewed and signed by Torsten Bruce Physician on 02/21/2017 15:24 MARTITA/
[2017-02-21] MEDS ORDERED: ALBU8.5H3 INH (15:28)
[2017-02-21] MEDS ORDERED: AZIT250T94 PO (15:29)
[2017-02-21] MEDS ORDERED: HC1C30 TOP (15:30)
[2017-02-21 16:24] VITALS: BP 127/76; PULSE 75; RESP 19; TEMP 98.3
== END 2017-02-21 16:25 | disposition home or self-care (01) ==
LOC: FTE 12:46
DX: J20.9 Acute bronchitis, unspecified (principal); R06.02 Shortness of breath
CPT/HCPCS: 71010; 93005; 94664; Z7502; Z7610

== ENCOUNTER 2017-03-11 17:22 | Emergency (ER) | payer OTHER ==
[~2017-03-11] VITALS: Wt 102.0 kg
[~2017-03-11 17:22] MED LIST changes: +HC1C30 TOP
[2017-03-11] MEDS ORDERED: ALBU8.5H3 INH (17:43)
[2017-03-11] MEDS ORDERED: PRED20TA PO (17:43)
--- NOTE | 2017-03-11 17:46 | ERD ---
ER Documentation Chief Complaint Date/Time DATE: 03/11/17 TIME: 17:44 Chief Complaint cough for the past hour. mild sob. no distress noted. speaks full sentences HPI This is a 41-year-old female who presents complaining of dry cough with wheezing that began last night. She thinks he may have felt had a fever last night but she did not check her temperature. Denies any nausea or vomiting. Denies any diarrhea. Denies any hemoptysis. Cough is dry worse at night. She has had relief of her symptoms in the past using albuterol. ROS All systems reviewed and are negative except as per history of present illness. Medications Home Meds Active Scripts Albuterol Sulfate* (Proair HFA*) 8.5 Gm Hfa.aer.ad, 2 PUFF INH Q4, #1 INHALER Prov:PEDRO ROMERO PA-C 03/11/17 Prednisone* (Prednisone*) 20 Mg Tab, 40 MG PO DAILY for 4 Days, TAB Prov:PEDRO ROMERO PA-C 03/11/17 Hydrocortisone* Topical (Hydrocortisone* Topical) 1%-28.35 Gm Cream..g., 1 APPLIC TOP Q6 Y for ITCHING, #1 TUB Prov:TRISTEN ROBBINS 02/21/17 Azithromycin* (Zithromax*) 250 Mg Tablet, 250 MG PO .ZPACK DIRECTED, #6 TAB TAKE 500 MG (2 TABS) THE FIRST DAY THEN 250 MG (1 TAB) DAYS 2-5 Prov:TRISTEN ROBBINS 02/21/17 Albuterol Sulfate* (Proair HFA*) 8.5 Gm Hfa.aer.ad, 2 PUFF INH Q4, #1 INHALER Prov:TRISTEN ROBBINS 02/21/17 Ibuprofen* (Motrin*) 600 Mg Tab, 600 MG PO Q6H Y for PAIN AND OR ELEVATED TEMP, #30 TAB Prov:JAKOB SKAGGS RESEARCH PROFESSOR OF BIOSTATISTICS 01/18/17 Cetirizine Hcl* (Zyrtec*) 10 Mg Capsule, 10 MG PO DAILY, #30 TAB.CHEW Prov:JAKOB SKAGGS RESEARCH PROFESSOR OF BIOSTATISTICS 01/18/17 Guaifenesin-Codeine Phosphate* (Guaifenesin* AC Cough Syrup) 473 Ml Liquid, 10 ML PO Q4H Y for COUGH, #120 ML Prov:JAKOB SKAGGS NP 01/18/17 Prednisone* (Prednisone*) 50 Mg Tablet, 50 MG PO DAILY, #5 TAB Prov:JAKOB SKAGGS NP 01/18/17 Albuterol Sulfate* (Proair HFA*) 8.5 Gm Hfa.aer.ad, 2 PUFF INH Q4H Y for WHEEZING AND SOB, #1 INHALER Prov:JAKOB SKAGGS NP 01/18/17 Azithromycin* (Zithromax*) 250 Mg Tablet, 250 MG PO .ZPACK DIRECTED, #6 TAB TAKE 500 MG (2 TABS) THE FIRST DAY THEN 250 MG (1 TAB) DAYS 2-5 Prov:AILYN DUTTA MD 12/31/16 Albuterol Sulfate* (Ventolin HFA*) 18 Gm Hfa.aer.ad, 2 PUFF INHALATION Q4H, #1 INHALER Prov:AILYN DUTTA MD 12/31/16 Prednisone* (Prednisone*) 20 Mg Tab, 60 MG PO DAILY for 5 Days, TAB 60 mg by mouth for 2 days then 40 mg by mouth for 3 days Prov:AILYN DUTTA MD 12/31/16 Prednisone* (Prednisone*) 20 Mg Tab, 40 MG PO DAILY for 4 Days, TAB Prov:SAMUEL GIVENS PA-C 11/24/16 Azithromycin* (Zithromax*) 250 Mg Tablet, 250 MG PO .ZPACK DIRECTED, #6 TAB TAKE 500 MG (2 TABS) THE FIRST DAY THEN 250 MG (1 TAB) DAYS 2-5 Prov:SAMUEL GIVENS PA-C 11/24/16 Benzonatate* (Tessalon Perle*) 100 Mg Capsule, 100 MG PO Q8H Y for COUGH for 14 Days, CAP Prov:SAMUEL GIVENS PA-C 11/24/16 Dextromethorphan Hb-Promethazine Hcl (Promethazine DM Syrup) 473 Ml Syrup, 2.5 ML PO Q6H Y for COUGH, #4 OZ Prov:SAMUEL GIVENS PA-C 11/24/16 Hydrocodone Bit-Acetaminophen* ([place]*) 5-325 Mg Tab, 1 TAB PO Q6 Y for PAIN, # 20 TAB Prov:ITZELTRISTEN Chary 03/16/16 Hydrocodone Bit-Acetaminophen* ([place]*) 5-325 Mg Tab, 1 TAB PO Q6 Y for SEVERE PAIN LEVEL 7-10, #7 TAB Prov:ARIEL MCNEAL. RESEARCH PROFESSOR OF BIOSTATISTICS 03/14/16 Cephalexin* (Keflex*) 500 Mg Capsule, 500 MG PO QID for 7 Days, CAP Prov:ARIEL MCNEAL X. RESEARCH PROFESSOR OF BIOSTATISTICS 03/14/16 Sulfamethoxazole-Trimethoprim* (Bactrim* DS) 800-160 Mg Tab, 1 TAB PO BID for 7 Days, TAB Prov:ARIEL MCNEAL. RESEARCH PROFESSOR OF BIOSTATISTICS 03/14/16 Ibuprofen* (Motrin*) 800 Mg Tab, 800 MG PO Q8, #30 TAB Prov:ARIEL MCNEAL. RESEARCH PROFESSOR OF BIOSTATISTICS 03/14/16 Allergies Allergies: Coded Allergies: No Known Allergy (Unverified , 03/11/17) PMhx/Soc Medical and Surgical Hx: pt denies Medical Hx, pt denies Surgical Hx History of Surgery: No Anesthesia Reaction: No Hx Neurological Disorder: No Hx Respiratory Disorders: No Hx Cardiac Disorders: No Hx Psychiatric Problems: No Hx Miscellaneous Medical Probl: No Hx Alcohol Use: No Hx Substance Use: No Hx Tobacco Use: No Smoking Status: Never smoker FmHx Family History: No diabetes Physical Exam Vitals Vital Signs Date Time Temp Pulse Resp B/P Pulse Ox O2 Delivery O2 Flow Rate FiO2 03/11/17 17:24 98.9 87 20 121/59 95 Physical Exam General: well developed, well nourished, alert, nontoxic, no distress Head: normocephalic, atraumatic Neck: Supple, nontender, no lymphadenopathy, no midline tenderness Oropharynx: no tonsilar erythema or edema, uvula midline, no exudates, no kissing tonsils, no drooling Respiratory: Clear to auscaultation bilaterally, speaks in full sentences, no use of accesory muscles or labored breathing, no rales, ronchi, or wheezing Cardiovascular: RRR, No murmurs GI: soft, non tender, non distended, negative murphys sign, negative mcburneys point tenderness, no cva tenderness bilaterally, no rebound or guarding Back: no midline tenderness, no step offs or bony abnormalities, sensation to light touch in tact Procedures/MDM Patient presents with what is most likely viral bronchitis. She is well- appearing in no distress. Vitals are normal. Low suspicion for pneumonia. She states in the past she has tried albuterol which has helped so I gave her prescription for an albuterol inhaler as well as a short course of prednisone. Recommended this patient follow up with her primary care doctor within 48 hours or return to the emergency room for any worsening of symptoms. However this time I do believe there is suitable for outpatient management. I answered all their questions and they agreed with the plan and were discharged home. Departure Diagnosis: Primary Impression: Bronchitis Condition: Stable Patient Instructions: Bronchitis, No Antibiotic (Adult) Additional Instructions: Call your primary care doctor TOMORROW for an appointment during the next 1-2 days.See the doctor sooner or return here if your condition worsens before your appointment time. PEDRO ROMERO PA-C March 11, 2017 17:46
== END 2017-03-11 18:12 | disposition home or self-care (01) ==
LOC: FTE 17:22
DX: J02.9 Acute pharyngitis, unspecified (principal)
CPT/HCPCS: 99284

== ENCOUNTER 2017-03-13 15:21 | Emergency (ER) | payer OTHER ==
[~2017-03-13] VITALS: Ht 160 cm; Wt 99.5 kg
[2017-03-13 15:23] VITALS: Ht 160 cm; Wt 99.5 kg
[2017-03-13] MEDS ORDERED: ALBUTEROL 0.083% (NEB) 2.5 MG/3 ML AMP HHN STA (16:05)
--- NOTE | 2017-03-13 16:17 | ERD ---
ER Documentation Chief Complaint Date/Time DATE: 03/13/17 TIME: 16:15 Chief Complaint asthma attacks HPI Patient is a 41-year-old female with a past medical history of asthma who presents to the ED with cough, shortness of breath, wheezing and congestion for 2 days. She states that she uses her albuterol inhaler at home but she ran out in the last day it was not helping. She denies chest pain. She denies headache or dizziness, neck pain or neck stiffness. She denies abdominal pain, nausea, vomiting or diarrhea. She denies hemoptysis or night sweats. She denies sick contacts. She states that she has had tactile fevers at home. She denies leg pain or leg swelling. Denies recent travel or recent surgeries. No other complaints. ROS All systems reviewed and are negative except as per history of present illness. Medications Home Meds Active Scripts Sodium Chloride (Saline Nasal [place]) 30 Ml [place], 30 ML NS BID for 14 Days, SPRAY Prov:SAMUEL GIVENS PA-C 03/13/17 Benzonatate* (Tessalon Perle*) 100 Mg Capsule, 100 MG PO Q8H Y for COUGH for 14 Days, CAP Prov:SAMUEL GIVENS PA-C 03/13/17 Albuterol Sulfate* (Proair HFA*) 8.5 Gm Hfa.aer.ad, 2 PUFF INH Q4, #1 INHALER Prov:SAMUEL GIVENS PA-C 03/13/17 Albuterol Sulfate* (Proair HFA*) 8.5 Gm Hfa.aer.ad, 2 PUFF INH Q4, #1 INHALER Prov:PEDRO ROMERO PA-C 03/11/17 Prednisone* (Prednisone*) 20 Mg Tab, 40 MG PO DAILY for 4 Days, TAB Prov:PEDRO ROMERO PA-C 03/11/17 Hydrocortisone* Topical (Hydrocortisone* Topical) 1%-28.35 Gm Cream..g., 1 APPLIC TOP Q6 Y for ITCHING, #1 TUB Prov:TRISTEN ROBBINS 02/21/17 Azithromycin* (Zithromax*) 250 Mg Tablet, 250 MG PO .MariumPACK DIRECTED, #6 TAB TAKE 500 MG (2 TABS) THE FIRST DAY THEN 250 MG (1 TAB) DAYS 2-5 Prov:TRISTEN ROBBINS 02/21/17 Albuterol Sulfate* (Proair HFA*) 8.5 Gm Hfa.aer.ad, 2 PUFF INH Q4, #1 INHALER Prov:TRISTEN ROBBINS 02/21/17 Ibuprofen* (Motrin*) 600 Mg Tab, 600 MG PO Q6H Y for PAIN AND OR ELEVATED TEMP, #30 TAB Prov:JAKOB SKAGGS CAREER TECHNICAL EDUCATION INSTRUCTOR 01/18/17 Cetirizine Hcl* (Zyrtec*) 10 Mg Capsule, 10 MG PO DAILY, #30 TAB.CHEW Prov:JAKOB SKAGGS CAREER TECHNICAL EDUCATION INSTRUCTOR 01/18/17 Guaifenesin-Codeine Phosphate* (Guaifenesin* AC Cough Syrup) 473 Ml Liquid, 10 ML PO Q4H Y for COUGH, #120 ML Prov:JAKOB SKAGGS NP 01/18/17 Prednisone* (Prednisone*) 50 Mg Tablet, 50 MG PO DAILY, #5 TAB Prov:JAKOB SKAGGS NP 01/18/17 Albuterol Sulfate* (Proair HFA*) 8.5 Gm Hfa.aer.ad, 2 PUFF INH Q4H Y for WHEEZING AND SOB, #1 INHALER Prov:JAKOB SKAGGS NP 01/18/17 Azithromycin* (Zithromax*) 250 Mg Tablet, 250 MG PO .ZPACK DIRECTED, #6 TAB TAKE 500 MG (2 TABS) THE FIRST DAY THEN 250 MG (1 TAB) DAYS 2-5 Prov:AILYN DUTTA MD 12/31/16 Albuterol Sulfate* (Ventolin HFA*) 18 Gm Hfa.aer.ad, 2 PUFF INHALATION Q4H, #1 INHALER Prov:AILYN DUTTA MD 12/31/16 Prednisone* (Prednisone*) 20 Mg Tab, 60 MG PO DAILY for 5 Days, TAB 60 mg by mouth for 2 days then 40 mg by mouth for 3 days Prov:AILYN DUTTA MD 12/31/16 Prednisone* (Prednisone*) 20 Mg Tab, 40 MG PO DAILY for 4 Days, TAB Prov:SAMUEL GIVENS PA-C 11/24/16 Azithromycin* (Zithromax*) 250 Mg Tablet, 250 MG PO .ZPACK DIRECTED, #6 TAB TAKE 500 MG (2 TABS) THE FIRST DAY THEN 250 MG (1 TAB) DAYS 2-5 Prov:SAMUEL GIVENS PA-C 11/24/16 Benzonatate* (Tessalon Perle*) 100 Mg Capsule, 100 MG PO Q8H Y for COUGH for 14 Days, CAP Prov:SAMUEL GIVENS PA-C 11/24/16 Dextromethorphan Hb-Promethazine Hcl (Promethazine DM Syrup) 473 Ml Syrup, 2.5 ML PO Q6H Y for COUGH, #4 OZ Prov:SAMUEL GIVENS PA-C 11/24/16 Hydrocodone Bit-Acetaminophen* ([place]*) 5-325 Mg Tab, 1 TAB PO Q6 Y for PAIN, # 20 TAB Prov:TRISTEN ROBBINS 03/16/16 Hydrocodone Bit-Acetaminophen* ([place]*) 5-325 Mg Tab, 1 TAB PO Q6 Y for SEVERE PAIN LEVEL 7-10, #7 TAB Prov:ARIEL MCNEAL. CAREER TECHNICAL EDUCATION INSTRUCTOR 03/14/16 Cephalexin* (Keflex*) 500 Mg Capsule, 500 MG PO QID for 7 Days, CAP Prov:ARIEL MCNEAL. CAREER TECHNICAL EDUCATION INSTRUCTOR 03/14/16 Sulfamethoxazole-Trimethoprim* (Bactrim* DS) 800-160 Mg Tab, 1 TAB PO BID for 7 Days, TAB Prov:ARIEL MCNEAL. CAREER TECHNICAL EDUCATION INSTRUCTOR 03/14/16 Ibuprofen* (Motrin*) 800 Mg Tab, 800 MG PO Q8, #30 TAB Prov:ARIEL MCNEAL. CAREER TECHNICAL EDUCATION INSTRUCTOR 03/14/16 Allergies Allergies: Coded Allergies: No Known Allergy (Unverified , 03/11/17) PMhx/Soc History of Surgery: No Anesthesia Reaction: No Hx Neurological Disorder: No Hx Respiratory Disorders: Yes (asthma) Hx Cardiac Disorders: No Hx Psychiatric Problems: No Hx Miscellaneous Medical Probl: No Hx Alcohol Use: No Hx Substance Use: No Hx Tobacco Use: No Smoking Status: Never smoker FmHx Family History: No coronary disease, No diabetes, No other Physical Exam Vitals Vital Signs Date Time Temp Pulse Resp B/P Pulse Ox O2 Delivery O2 Flow Rate FiO2 03/13/17 16:20 78 18 97 21 03/13/17 15:23 98.3 85 19 121/76 100 Physical Exam GENERAL: Well-developed, well-nourished female. Appears in no acute distress. HEAD: Normocephalic, atraumatic. EYES: Pupils are equally reactive bilaterally. EOMs grossly intact. No conjunctival erythema. ENT: Moist mucous membranes. No uvula deviation. No kissing tonsils. No exudates. NECK: Supple. No lymphadenopathy or thyromegaly. No meningismus. negative kernig. negative brudinski. LUNG: Clear to auscultation bilaterally. No rhonchi, wheezing, rales or coarse breath sounds. HEART: Regular rate and rhythm. No murmurs, rubs or gallops. Extremities: Equal pulses bilaterally. No peripheral clubbing, cyanosis or edema. No unilateral leg swelling. NEUROLOGIC: Alert and oriented. Moving all four extremities. 5/5 strength in all extremities. Normal speech. Steady gait. SKIN: Normal color. Warm and dry. No rashes or lesions. Capillary refill < 2 seconds Results 24 hrs Current Medications Medications (Trade) Dose Ordered Sig/Elle Route PRN Reason Start Time Stop Time Status Last Admin Dose Admin Albuterol (Proventil 0.083% (Neb)) 5 mg ONCE STAT N 03/13/17 16:05 03/13/17 16:07 DC 03/13/17 16:18 Ipratropium [place] (Atrovent 0.02% (Neb)) 0.5 mg ONCE ONCE HHN 03/13/17 16:30 03/13/17 16:31 DC 03/13/17 16:18 Procedures/MDM ER COURSE: I kept the patient and/or family informed of laboratory and diagnostic imaging results throughout the emergency room course. EKG, MONITORS, & DIAGNOSTIC IMAGING: [place] [id number] Radiology Main Line: [phone] DIAGNOSTIC IMAGING REPORT Patient: GANESH GILLETTE : 1975 Age: 41 Sex: F MR #: [id number] DOS: 03/13/17 1600 Ordering MD: SAMUEL GIVENS PA-C Location: [facility] Room/Bed: PROCEDURE: XR Chest. CLINICAL INDICATION: Coughing and wheezing. TECHNIQUE: Single frontal view. COMPARISON: 02/21/2017. FINDINGS: The lungs are clear. The heart size is normal. There is no pleural effusion. There is no pneumothorax. IMPRESSION: 1. Normal chest radiograph. 2. No change from 02/21/2017. RPTAT: QQ .Ailyn Leyva MD, Date Time Electronically viewed and signed by .Ailyn Leyva MD, on 03/13/2017 16:28 .R/ CC: SAMUEL GIVENS PA-C PROCEDURES: RT consult. albuterol and atrovent given. Patient tolerated well with no adverse reaction. MEDICAL DECISION MAKING: This is a 41 year old female who presents with cough, congestion and wheezing 2 days. Vital signs were reviewed. Patient is afebrile. Patient is not hypoxic. Patient is not toxic or ill-appearing. Patient likely has URI of viral etiology. Her x-rays read by radiologist is unremarkable. Low suspicion for pneumonia, PE, pneumothorax, ACS, epiglottitis, obstruction, TB, pertussis, meningitis, sepsis. Patient does not show signs of respiratory distress and is speaking in full sentences with on signs of retractions or nasal flaring. I reexamined patient after administration of breathing treatment and she stated improvement in symptoms and was ready for discharge. Low suspicion for ACS, PE , AAA, dissection, DVT DISCHARGE: At this time, patient is stable for discharge and outpatient management with no new complaints during the ER course. Patient was sent home with pro-air, Tessalon Perles, saline nasal spray and a note for work. Patient will be discharged home with instructions to recheck for new or worsening symptoms such as fever, nausea, weakness, LOC and to follow up with primary care in the next 1 -2 days. Patient was advised to return to the ER for any new or worsening symptoms. Plan was discussed and patient and/or family understands and agrees. Home instructions were given. Departure Diagnosis: Primary Impression: URI, acute Condition: Stable SAMUEL GIVENS PA-C March 13, 2017 16:17
--- NOTE | 2017-03-13 16:29 | RADRPT ---
PROCEDURE: XR Chest. CLINICAL INDICATION: Coughing and wheezing. TECHNIQUE: Single frontal view. COMPARISON: 02/21/2017. FINDINGS: The lungs are clear. The heart size is normal. There is no pleural effusion. There is no pneumothorax. IMPRESSION: 1. Normal chest radiograph. 2. No change from 02/21/2017. RPTAT: QQ .Sudheer Leyva MD, MD Date Time Electronically viewed and signed by .Sudheer Leyva MD, on 03/13/2017 16:28 .R/
[2017-03-13] MEDS ORDERED: IPRATROPIUM (NEB) 0.5 MG/2.5 ML AMP HHN ONE (16:30)
[2017-03-13] MEDS ORDERED: ALBU8.5H3 INH (16:41)
[2017-03-13] MEDS ORDERED: BENZ100C70 PO (16:42)
[2017-03-13] MEDS ORDERED: SODI30SP2 NS (16:42)
== END 2017-03-13 17:00 | disposition home or self-care (01) ==
LOC: FTE 15:21
DX: J06.9 Acute upper respiratory infection, unspecified (principal); J45.909 Unspecified asthma, uncomplicated
CPT/HCPCS: 71010; 94664; Z7502; Z7610

== ENCOUNTER 2017-05-26 23:12 | Emergency (ER) | payer OTHER ==
[~2017-05-26] VITALS: Ht 160 cm; Wt 98.0 kg
[~2017-05-26 23:12] MED LIST changes: +SODI30SP2 NS
[2017-05-26 23:50] VITALS: Ht 160 cm; Wt 98.0 kg
[2017-05-27] MEDS ORDERED: AZIT500T2 PO (02:39)
[2017-05-27] MEDS ORDERED: KEN25L60 TOP (02:39)
[2017-05-27] MEDS ORDERED: PRED20TA PO (02:39)
[2017-05-27] MEDS ORDERED: ALBU8.5H3 INH (02:39)
--- NOTE | 2017-05-27 02:42 | ERD ---
ER Documentation Chief Complaint Date/Time DATE: 05/27/17 TIME: 02:41 Chief Complaint cough/congestion x 3 days HPI 41-year-old female with a history of asthma presents emergency department for complaints of productive cough, sinus congestion, wheezing, fever and chills 3 days. Patient states that she normally controls her symptoms with an albuterol inhaler however she ran out of her prescription. Patient also reports a rash on her face as requesting a topical cream. She has been treating her symptoms with Tylenol thus far which has successfully controlled her fever and chills. Patient states she has not followed up with her primary care physician or general repairer for her ongoing respiratory symptoms. She denies any nausea, vomiting, diarrhea, abdominal pain, headache. ROS All systems reviewed and are negative except as per history of present illness. Medications Home Meds Active Scripts Albuterol Sulfate* (Proair HFA*) 8.5 Gm Hfa.aer.ad, 2 PUFF INH Q4, #1 INHALER Prov:ERIN PAEZ PA-C 05/27/17 Azithromycin* (Zithromax* Tri-Leonardo) 500 Mg Tablet, 500 MG PO DAILY for 3 Days, TAB Prov:ERIN PAEZ PA-C 05/27/17 Triamcinolone Acetonide* (Kenalog*) 0.025%-60ML Lotion, 1 APPLIC TOP BID, #1 BOTTLE Prov:ERIN PAEZ PA-C 05/27/17 Prednisone* (Prednisone*) 20 Mg Tab, 40 MG PO DAILY for 4 Days, TAB Prov:ERIN PAEZ PA-C 05/27/17 Sodium Chloride (Saline Nasal [place]) 30 Ml [place], 30 ML NS BID for 14 Days, SPRAY Prov:SAMUEL GIVENS PA-C 03/13/17 Benzonatate* (Tessalon Perle*) 100 Mg Capsule, 100 MG PO Q8H Y for COUGH for 14 Days, CAP Prov:SAMUEL GIVENS-C 03/13/17 Albuterol Sulfate* (Proair HFA*) 8.5 Gm Hfa.aer.ad, 2 PUFF INH Q4, #1 INHALER Prov:SAMUEL GIVENS-C 03/13/17 Albuterol Sulfate* (Proair HFA*) 8.5 Gm Hfa.aer.ad, 2 PUFF INH Q4, #1 INHALER Prov:PEDRO ROMERO PA-C 03/11/17 Prednisone* (Prednisone*) 20 Mg Tab, 40 MG PO DAILY for 4 Days, TAB Prov:HEATHERPEDRO TRIPLETT 03/11/17 Hydrocortisone* Topical (Hydrocortisone* Topical) 1%-28.35 Gm Cream..g., 1 APPLIC TOP Q6 Y for ITCHING, #1 TUB Prov:MARJ ROBBINSTERESA Diez 02/21/17 Azithromycin* (Zithromax*) 250 Mg Tablet, 250 MG PO .ZPACK DIRECTED, #6 TAB TAKE 500 MG (2 TABS) THE FIRST DAY THEN 250 MG (1 TAB) DAYS 2-5 Prov:MARJ ROBBINSTERESA Diez 02/21/17 Albuterol Sulfate* (Proair HFA*) 8.5 Gm Hfa.aer.ad, 2 PUFF INH Q4, #1 INHALER Prov:ITZEL,TRISTEN Diez 02/21/17 Ibuprofen* (Motrin*) 600 Mg Tab, 600 MG PO Q6H Y for PAIN AND OR ELEVATED TEMP, #30 TAB Prov:JAKOB SKAGGS NP 01/18/17 Cetirizine Hcl* (Zyrtec*) 10 Mg Capsule, 10 MG PO DAILY, #30 TAB.CHEW Prov:JAKOB SKAGGS NP 01/18/17 Guaifenesin-Codeine Phosphate* (Guaifenesin* AC Cough Syrup) 473 Ml Liquid, 10 ML PO Q4H Y for COUGH, #120 ML Prov:JAKOB SKAGGS NP 01/18/17 Prednisone* (Prednisone*) 50 Mg Tablet, 50 MG PO DAILY, #5 TAB Prov:JAKOB SKAGGS NP 01/18/17 Albuterol Sulfate* (Proair HFA*) 8.5 Gm Hfa.aer.ad, 2 PUFF INH Q4H Y for WHEEZING AND SOB, #1 INHALER Prov:JAKOB SKAGGS TREAD TUBER MACHINE OPERATOR 01/18/17 Azithromycin* (Zithromax*) 250 Mg Tablet, 250 MG PO .ZPACK DIRECTED, #6 TAB TAKE 500 MG (2 TABS) THE FIRST DAY THEN 250 MG (1 TAB) DAYS 2-5 Prov:AILYN DUTTA MD 12/31/16 Albuterol Sulfate* (Ventolin HFA*) 18 Gm Hfa.aer.ad, 2 PUFF INHALATION Q4H, #1 INHALER Prov:AILYN DUTTA MD 12/31/16 Prednisone* (Prednisone*) 20 Mg Tab, 60 MG PO DAILY for 5 Days, TAB 60 mg by mouth for 2 days then 40 mg by mouth for 3 days Prov:AILYN DUTTA MD 12/31/16 Prednisone* (Prednisone*) 20 Mg Tab, 40 MG PO DAILY for 4 Days, TAB Prov:SAMUEL GIVENS PA-C 11/24/16 Azithromycin* (Zithromax*) 250 Mg Tablet, 250 MG PO .ZPACK DIRECTED, #6 TAB TAKE 500 MG (2 TABS) THE FIRST DAY THEN 250 MG (1 TAB) DAYS 2-5 Prov:SAMUEL GIVENSC 11/24/16 Benzonatate* (Tessalon Perle*) 100 Mg Capsule, 100 MG PO Q8H Y for COUGH for 14 Days, CAP Prov:SAMUEL GIVENSC 11/24/16 Dextromethorphan Hb-Promethazine Hcl (Promethazine DM Syrup) 473 Ml Syrup, 2.5 ML PO Q6H Y for COUGH, #4 OZ Prov:SAMUEL GIVENS-C 11/24/16 Hydrocodone Bit-Acetaminophen* ([place]*) 5-325 Mg Tab, 1 TAB PO Q6 Y for PAIN, # 20 TAB Prov:TRISTEN ROBBINS 03/16/16 Hydrocodone Bit-Acetaminophen* ([place]*) 5-325 Mg Tab, 1 TAB PO Q6 Y for SEVERE PAIN LEVEL 7-10, #7 TAB Prov:ARIEL MCNEAL NP 03/14/16 Cephalexin* (Keflex*) 500 Mg Capsule, 500 MG PO QID for 7 Days, CAP Prov:ARIEL MCNEAL NP 03/14/16 Sulfamethoxazole-Trimethoprim* (Bactrim* DS) 800-160 Mg Tab, 1 TAB PO BID for 7 Days, TAB Prov:ARIEL MCNEAL TREAD TUBER MACHINE OPERATOR 03/14/16 Ibuprofen* (Motrin*) 800 Mg Tab, 800 MG PO Q8, #30 TAB Prov:ARIEL MCNEAL. TREAD TUBER MACHINE OPERATOR 03/14/16 Allergies Allergies: Coded Allergies: No Known Allergy (Unverified , 05/26/17) PMhx/Soc History of Surgery: No Anesthesia Reaction: No Hx Neurological Disorder: No Hx Respiratory Disorders: Yes (asthma) Hx Cardiac Disorders: No Hx Psychiatric Problems: No Hx Miscellaneous Medical Probl: No Hx Alcohol Use: No Hx Substance Use: No Hx Tobacco Use: No Smoking Status: Never smoker Physical Exam Vitals Vital Signs Date Time Temp Pulse Resp B/P Pulse Ox O2 Delivery O2 Flow Rate FiO2 05/27/17 03:16 89 18 99 21 05/26/17 23:50 98.4 81 20 115/65 97 Physical Exam Const: Well developed, well-nourished, no acute distress Head: Atraumatic. Eczematous erythematous scaly rash located at the nasolabial folds, forehead, chin, and cheeks. Eyes: Normal Conjunctiva. No swelling ENT: Normal External Ears, Nose and Mouth. No evidence of facial swelling. Posterior oropharynx nonerythematous without tonsillar swelling or exudate. Neck: Full range of motion..~ No meningismus. Resp: Slight inspiratory wheezes auscultated on the right upper lung. Cardio: Regular rate and rhythm, no murmurs Abd: Soft, non tender, non distended. Normal bowel sounds Skin: No petechiae or rashes Back: No midline or flank tenderness Ext: No cyanosis, or edema Neur: Awake and alert Psych: Normal Mood and Affect Results 24 hrs Current Medications Medications (Trade) Dose Ordered Sig/Elle Route PRN Reason Start Time Stop Time Status Last Admin Dose Admin Albuterol (Proventil 0.083% (Neb)) 5 mg ONCE STAT NEB 05/27/17 03:00 05/27/17 03:02 DC 05/27/17 03:16 Ipratropium [place] (Atrovent 0.02% (Neb)) 0.5 mg ONCE STAT NEB 05/27/17 03:00 05/27/17 03:02 DC 05/27/17 03:16 Procedures/MDM This is a 41-year-old female who returns to the emergency department for ongoing respiratory symptoms including cough, wheezing, and sinus congestion. Patient also reports feveR, chills, and itchy rash. Vital signs reviewed. Patient afebrile, normotensive, not tachycardic and non-hypoxic upon arrival. Physical exam with evidence of an eczematous rash on the face as well as wheezes in the right upper lung. Patient received 1 nebulizer treatment on the emergency department and symptoms have subsided. History and physical consistent with acute asthma exacerbation. Instructed the patient to follow-up with primary care physician for better management of her chronic respiratory disease. Patient will receive steroids, albuterol inhaler, and antibiotic as she reports fever and chills. Based on patient's history of present illness and physical examination the decision was made to discharge. The patient was re-evaluated after ED treatment and stabilizing measures, and symptoms have improved. There is no evidence of life threatening injuries or illnesses at this time. On re-examination, patient resting in no distress, stable vital signs, reports feeling better and safe for discharge with outpatient follow up with PMD in 1-2 days. Patient given return precautions. Departure Diagnosis: Primary Impression: Congestion of nasal sinus Additional Impressions: Cough Eczema Eczema type: unspecified Qualified Code: L30.9 - Eczema, unspecified type Wheezing Condition: Good Patient Instructions: Bronchitis With Wheezing (Adult) Additional Instructions: Call your primary care doctor TOMORROW for an appointment during the next 1-2 days.See the doctor sooner or return here if your condition worsens before your appointment time. ERIN PAEZ PA-C May 27, 2017 02:41
[2017-05-27] MEDS ORDERED: IPRATROPIUM (NEB) 0.5 MG/2.5 ML AMP NEB STA (03:00)
[2017-05-27] MEDS ORDERED: ALBUTEROL 0.083% (NEB) 2.5 MG/3 ML AMP NEB STA (03:00)
== END 2017-05-27 03:44 | disposition home or self-care (01) ==
LOC: FTE 23:12
DX: R09.81 Nasal congestion (principal); L30.9 Dermatitis, unspecified; J45.901 Unspecified asthma with (acute) exacerbation
CPT/HCPCS: 94664; Z7502; Z7610

== ENCOUNTER 2017-06-15 22:24 | Emergency (ER) | END 2017-06-16 01:20 | disposition home or self-care (01) | DX: R06.02 Shortness of breath (principal); J45.909 Unspecified asthma, uncomplicated | CPT/HCPCS: 94644; 96372; J1100; Z7502; Z7610 ==

== ENCOUNTER 2017-07-13 23:41 | Inpatient (IN) | payer OTHER ==
[~2017-07-13] VITALS: Ht 160 cm; Wt 95.0 kg
[~2017-07-13 23:41] MED LIST changes: +AZIT500T2 PO; +FLUT9.9S NASAL; +KEN25L60 TOP
[2017-07-13] MEDS ORDERED: METHYLPREDNISOLONE 125 MG INJ IV STA (23:49)
[2017-07-13] MEDS ORDERED: ALBUTEROL 0.083% (NEB) 2.5 MG/3 ML AMP HHN STA (23:49)
[2017-07-13] MEDS ORDERED: IPRATROPIUM (NEB) 0.5 MG/2.5 ML AMP INH STA (23:49)
[2017-07-13] MEDS ORDERED: ALBUTEROL 0.5% (NEB) 2.5 MG/0.5 ML AMP INH STA (23:49)
[2017-07-13 23:57] VITALS: TEMP 98.6
[2017-07-14] VITALS (11 sets, daily range): BP systolic 100–107; BP diastolic 50–63; PULSE 94–115; RESP 18–19; Ht 160 cm; Wt 95.0 kg
[2017-07-14 00:21] LABS: AADO2 Arterial 151.8 mmHg (7.0-24.0); Allen Test ACCEPTAB; Arterial Base Excess -4.1 mmol/L (-3.0-3); Arterial COHb 0.1 % (0.0-3.0); Arterial HCO3 21.2 mmol/L (22.0-26.0); Arterial MetHb 0.3 % (0.0-1.5); Arterial Total Hemglobin 14.8 g/dl (12.0-18.0); MODE MASK - SIMPLE
[2017-07-14 00:35] LABS: ABNORMAL IP MESSAGE 1; BASOPHIL # 0.1 10^3/ul (0.0-0.1); BASOPHILS % 0.4 % (0.0-2.0); EOSINOPHILS # 0.4 10^3/ul (0.0-0.5); EOSINOPHILS % 2.8 % (0.0-7.0); HEMATOCRIT 42.9 % (37.0-47.0); LYMPHOCYTES # 5.6 10^3/ul (0.8-2.9); LYMPHOCYTES % 35.5 % (15.0-51.0); MEAN CORPUSCULAR HEMOGLOBIN 30.2 pg (29.0-33.0); MEAN CORPUSCULAR HGB CONC 32.6 g/dl (32.0-37.0); MEAN CORPUSCULAR VOLUME 92.5 fl (82.0-101.0); MEAN PLATELET VOLUME 11.7 fl (7.4-10.4); MONOCYTE # 0.7 10^3/ul (0.3-0.9); MONOCYTES % 4.6 % (0.0-11.0); NEUTROPHILS % 56.4 % (39.0-77.0); PLATELET COUNT 283 10^3/UL (140-415); RED BLOOD COUNT 4.64 10^6/ul (4.20-5.40); RED CELL DISTRIBUTION WIDTH 13.5 % (11.5-14.5); WHITE BLOOD COUNT 15.7 10^3/ul (4.8-10.8)
[2017-07-14 00:38] LABS: POSITIVE DIFF @See below
--- NOTE | 2017-07-14 00:51 | RADRPT ---
PROCEDURE: Portable chest x-ray. CLINICAL INDICATION: 41 years of age, female. Shortness of breath. TECHNIQUE: Portable AP view of the chest. COMPARISON: None available. FINDINGS: Cardiomediastinal contours are normal. Lungs are clear. Negative for pleural effusion or pneumothorax. No acute bony abnormality. IMPRESSION: Negative for evidence of acute chest process. RPTAT: HCTS Physician Eliana Date Time Electronically viewed and signed by Lida Nguyen Physician on 07/14/2017 00:51 CS/
[2017-07-14] MEDS ORDERED: DIPHENHYDRAMINE 50 MG INJ ONE (00:57)
[2017-07-14 00:58] LABS: ANION GAP 13 (8-16); BLOOD UREA NITROGEN 20 mg/dl (7-20); CALCIUM 9.5 mg/dl (8.4-10.2); CARBON DIOXIDE 25 mmol/L (21-31); CHLORIDE 103 mmol/L (97-110); CREATININE 0.71 mg/dl (0.44-1.00); GLUCOSE 121 mg/dl (70-220); POTASSIUM 3.5 mmol/L (3.5-5.1); SODIUM 137 mmol/L (135-144)
[2017-07-14] MEDS ORDERED: MAGNESIUM SULFATE 2 GM/50 ML 50 ML IVPB ONE (01:00)
[2017-07-14] MEDS ORDERED: DIPHENHYDRAMINE 50 MG INJ IV ONE (01:00)
[2017-07-14] MEDS ORDERED: SOD CHLORIDE 0.9% 100 ML ONE (01:08)
[2017-07-14] MEDS ORDERED: IOHEXOL 100 ML ONE (01:08)
[2017-07-14 01:09] LABS: B-TYPE NATRIURETIC PEPTIDE 49 PG/ML (0-125)
[2017-07-14 01:11] LABS: TROPONIN-I < 0.012 ng/ml (0.00-0.12)
[2017-07-14] MEDS ORDERED: ALBUTEROL 0.083% (NEB) 2.5 MG/3 ML AMP HHN ONE (01:24)
[2017-07-14] MEDS ORDERED: IPRATROPIUM (NEB) 0.5 MG/2.5 ML AMP HHN ONE ×2 (01:24)
--- NOTE | 2017-07-14 01:24 | ERA ---
ER Documentation Chief Complaint Date/Time DATE: 07/14/17 TIME: 01:14 Chief Complaint bib self, cc: asthma exacerbation, cat allergies, recent bronchitis 2 mon HPI This 41-year-old female comes emergency room for severe shortness of breath that began several hours ago and is gotten worse throughout the day. She does have a history of asthma but .This is much worse than any asthma attack she is ever had. She has some chest discomfort as well has not had no fever and chills lately. ROS All systems reviewed and are negative except as per history of present illness. Medications Home Meds Active Scripts Fluticasone Propionate (Flonase Allergy Relief) 9.9 Ml [place].susp, 1 SPRAY NASAL BID, #1 BOTTLE TO EACH NOSTRIL Prov:GURVINDER MUNGUIA PA-C 06/16/17 Cetirizine Hcl* (Zyrtec*) 10 Mg Capsule, 10 MG PO DAILY, #10 TAB.CHEW Prov:GURVINDER MUNGUIA PA-C 06/16/17 Prednisone* (Prednisone*) 20 Mg Tab, 60 MG PO DAILY for 4 Days, TAB Prov:GURVINDER MUNGUIA PA-C 06/16/17 Albuterol Sulfate* (Proair HFA*) 8.5 Gm Hfa.aer.ad, 2 PUFF INH Q4, #1 INHALER Prov:GURVINDER MUNGUIA PA-C 06/16/17 Albuterol Sulfate* (Proair HFA*) 8.5 Gm Hfa.aer.ad, 2 PUFF INH Q4, #1 INHALER Prov:ERIN PAEZ PA-C 05/27/17 Azithromycin* (Zithromax* Tri-Leonardo) 500 Mg Tablet, 500 MG PO DAILY for 3 Days, TAB Prov:ERIN PAEZ PA-C 05/27/17 Triamcinolone Acetonide* (Kenalog*) 0.025%-60ML Lotion, 1 APPLIC TOP BID, #1 BOTTLE Prov:ERIN PAEZ PA-C 05/27/17 Prednisone* (Prednisone*) 20 Mg Tab, 40 MG PO DAILY for 4 Days, TAB Prov:ERIN PAEZ PA-C 05/27/17 Sodium Chloride (Saline Nasal [place]) 30 Ml [place], 30 ML NS BID for 14 Days, SPRAY Prov:EUFEMIASURINDERSAMUEL TRIPLETT 03/13/17 Benzonatate* (Tessalon Perle*) 100 Mg Capsule, 100 MG PO Q8H Y for COUGH for 14 Days, CAP Prov:EUFEMIABRIDGETSHERISAMUEL PA-C 03/13/17 Albuterol Sulfate* (Proair HFA*) 8.5 Gm Hfa.aer.ad, 2 PUFF INH Q4, #1 INHALER Prov:EUFEMIANISHMIGUELSAMUEL TRIPLETT 03/13/17 Albuterol Sulfate* (Proair HFA*) 8.5 Gm Hfa.aer.ad, 2 PUFF INH Q4, #1 INHALER Prov:PEDRO ROMERO PA-C 03/11/17 Prednisone* (Prednisone*) 20 Mg Tab, 40 MG PO DAILY for 4 Days, TAB Prov:PEDRO ROMERO PA-C 03/11/17 Hydrocortisone* Topical (Hydrocortisone* Topical) 1%-28.35 Gm Cream..g., 1 APPLIC TOP Q6 Y for ITCHING, #1 TUB Prov:TRISTEN ROBBINS 02/21/17 Azithromycin* (Zithromax*) 250 Mg Tablet, 250 MG PO .ZPACK DIRECTED, #6 TAB TAKE 500 MG (2 TABS) THE FIRST DAY THEN 250 MG (1 TAB) DAYS 2-5 Prov:TRISTEN ROBBINS 02/21/17 Albuterol Sulfate* (Proair HFA*) 8.5 Gm Hfa.aer.ad, 2 PUFF INH Q4, #1 INHALER Prov:TRISTEN ROBBINS 02/21/17 Ibuprofen* (Motrin*) 600 Mg Tab, 600 MG PO Q6H Y for PAIN AND OR ELEVATED TEMP, #30 TAB Prov:JAKOB SKAGGS WEB RETAILER 01/18/17 Cetirizine Hcl* (Zyrtec*) 10 Mg Capsule, 10 MG PO DAILY, #30 TAB.CHEW Prov:JAKOB SKAGGS NP 01/18/17 Guaifenesin-Codeine Phosphate* (Guaifenesin* AC Cough Syrup) 473 Ml Liquid, 10 ML PO Q4H Y for COUGH, #120 ML Prov:JAKOB SKAGGS WEB RETAILER 01/18/17 Prednisone* (Prednisone*) 50 Mg Tablet, 50 MG PO DAILY, #5 TAB Prov:JAKOB SKAGGS NP 01/18/17 Albuterol Sulfate* (Proair HFA*) 8.5 Gm Hfa.aer.ad, 2 PUFF INH Q4H Y for WHEEZING AND SOB, #1 INHALER Prov:JAKOB SKAGGS NP 01/18/17 Azithromycin* (Zithromax*) 250 Mg Tablet, 250 MG PO .ZPACK DIRECTED, #6 TAB TAKE 500 MG (2 TABS) THE FIRST DAY THEN 250 MG (1 TAB) DAYS 2-5 Prov:AILYN DUTTA MD 12/31/16 Albuterol Sulfate* (Ventolin HFA*) 18 Gm Hfa.aer.ad, 2 PUFF INHALATION Q4H, #1 INHALER Prov:AILYN DUTTA MD 12/31/16 Prednisone* (Prednisone*) 20 Mg Tab, 60 MG PO DAILY for 5 Days, TAB 60 mg by mouth for 2 days then 40 mg by mouth for 3 days Prov:AILYN DUTTA MD 12/31/16 Prednisone* (Prednisone*) 20 Mg Tab, 40 MG PO DAILY for 4 Days, TAB Prov:SAMUEL GIVENS PA-C 11/24/16 Azithromycin* (Zithromax*) 250 Mg Tablet, 250 MG PO .ZPACK DIRECTED, #6 TAB TAKE 500 MG (2 TABS) THE FIRST DAY THEN 250 MG (1 TAB) DAYS 2-5 Prov:SAMUEL GIVENS PA-C 11/24/16 Benzonatate* (Tessalon Perle*) 100 Mg Capsule, 100 MG PO Q8H Y for COUGH for 14 Days, CAP Prov:SAMUEL GIVENS PA-C 11/24/16 Dextromethorphan Hb-Promethazine Hcl (Promethazine DM Syrup) 473 Ml Syrup, 2.5 ML PO Q6H Y for COUGH, #4 OZ Prov:SAMUEL GIVENSC 11/24/16 Hydrocodone Bit-Acetaminophen* ([place]*) 5-325 Mg Tab, 1 TAB PO Q6 Y for PAIN, # 20 TAB Prov:TRISTEN ROBBINS 03/16/16 Hydrocodone Bit-Acetaminophen* ([place]*) 5-325 Mg Tab, 1 TAB PO Q6 Y for SEVERE PAIN LEVEL 7-10, #7 TAB Prov:ARIEL MCNEAL. WEB RETAILER 03/14/16 Cephalexin* (Keflex*) 500 Mg Capsule, 500 MG PO QID for 7 Days, CAP Prov:ARIEL MCNEAL X. WEB RETAILER 03/14/16 Sulfamethoxazole-Trimethoprim* (Bactrim* DS) 800-160 Mg Tab, 1 TAB PO BID for 7 Days, TAB Prov:ARIEL MCNEAL X. WEB RETAILER 03/14/16 Ibuprofen* (Motrin*) 800 Mg Tab, 800 MG PO Q8, #30 TAB Prov:ARIEL MCNEAL X. WEB RETAILER 03/14/16 Allergies Allergies: Coded Allergies: No Known Allergy (Unverified , 05/26/17) PMhx/Soc History of Surgery: No Anesthesia Reaction: No Hx Neurological Disorder: No Hx Respiratory Disorders: Yes (Asthma) Hx Cardiac Disorders: No Hx Psychiatric Problems: No Hx Miscellaneous Medical Probl: No Hx Alcohol Use: No Hx Substance Use: No Hx Tobacco Use: No Smoking Status: Never smoker Physical Exam Vitals Vital Signs Date Time Temp Pulse Resp B/P Pulse Ox O2 Delivery O2 Flow Rate FiO2 07/14/17 01:43 104 100 50 07/14/17 00:46 105 100 50 07/14/17 00:38 119 31 131/87 99 Mask 07/14/17 00:01 115 24 87 21 07/13/17 23:57 98.6 115 30 135/81 96 Non Rebreather 07/13/17 23:55 Non Rebreather 10.0 07/13/17 23:54 Non Rebreather 10 07/13/17 23:45 98.6 102 30 135/81 84 Physical Exam Const: [] Severe respiratory distress. Head: Atraumatic Eyes: Normal Conjunctiva ENT: Normal External Ears, Nose and Mouth. Neck: Full range of motion..~ No meningismus. Resp: Severe respiratory distress with accessory muscle use of abdominal , scalenes, speaking in no more than 3 words at a time, tachypnea, working very hard to breathe.. Cardio: Regular Tachycardia, no murmurs Abd: Soft, non tender, non distended. Normal bowel sounds Skin: No petechiae or rashes Back: No midline or flank tenderness Ext: No cyanosis, or edema Neur: Awake and alertAnd oriented 3, no focal deficits Psych: Anxious. Result Diagram: 07/14/17 0015 07/14/17 0015 Results 24 hrs Laboratory Tests Test 07/14/17 00:02 07/14/17 00:15 Blood Gas Specimen Source Blood arterial Arterial Blood Date Drawn 07/14/2017 12:00:01 AM Arterial Blood pH (Temp corrected) 7.345 Arterial Blood pCO2 (Temp correct) 39.8mmhg Arterial Blood pO2 (Temp corrected) 80.4mmHG Arterial Blood HCO3 21.2mmol/L Arterial Blood Base Excess -4.1mmol/L Arterial Blood Oxygen Saturation 95.4mmHG Fabio Test ACCEPTAB Arterial Blood Gas Puncture Site Right Radial Arterial Blood Carboxyhemoglobin 0.1% Arterial Blood Methemoglobin 0.3% Blood Gas A-a O2 Differential 151.8mmHg Oxyhemoglobin Percent 95.0% Total Hemoglobin 14.8g/dl Blood Gas Temperature 37.0C Blood Gas Modality MASK - SIMPLE FiO2 39.0% Blood Gas Notified Whom UP Blood Gas Notified Time 07/14/2017 12:20:17 AM White Blood Count 15.710^3/ul Red Blood Count 4.6410^6/ul Hemoglobin 14.0g/dl Hematocrit 42.9% Mean Corpuscular Volume 92.5fl Mean Corpuscular Hemoglobin 30.2pg Mean Corpuscular Hemoglobin Concent 32.6g/dl Red Cell Distribution Width 13.5% Platelet Count 04124^3/UL Mean Platelet Volume 11.7fl Neutrophils % 56.4% Lymphocytes % 35.5% Monocytes % 4.6% Eosinophils % 2.8% Basophils % 0.4% Nucleated Red Blood Cells % 0.0/100WBC Neutrophils # (Manual) 8.910^3/ul Lymphocytes # 5.610^3/ul Monocytes # 0.710^3/ul Eosinophils # 0.410^3/ul Basophils # 0.110^3/ul Nucleated Red Blood Cells # 0.010^3/ul Sodium Level 137mmol/L Potassium Level 3.5mmol/L Chloride Level 103mmol/L Carbon Dioxide Level 25mmol/L Anion Gap 13 Blood Urea Nitrogen 20mg/dl Creatinine 0.71mg/dl Glucose Level 121mg/dl Calcium Level 9.5mg/dl Troponin I < 0.012ng/ml B-Type Natriuretic Peptide 49PG/ML Serum HCG, Qualitative NEGATIVE Current Medications Medications (Trade) Dose Ordered Sig/Elle Route PRN Reason Start Time Stop Time Status Last Admin Dose Admin Albuterol (Proventil 0.083% (Neb)) 5 mg ONCE STAT HHN 07/13/17 23:49 07/13/17 23:50 DC 07/14/17 00:00 Ipratropium [place] (Atrovent 0.02% (Neb)) 0.5 mg ONCE ONCE HHN 07/14/17 00:00 07/14/17 00:01 DC 07/14/17 00:00 Albuterol (Proventil 0.5% (Neb)) 10 mg ONCE STAT INH 07/13/17 23:49 07/13/17 23:54 DC Ipratropium [place] (Atrovent 0.02% (Neb)) 1 mg ONCE STAT INH 07/13/17 23:49 07/13/17 23:54 DC Methylprednisolone Sodium Succinate (Solu-Medrol) 125 mg ONCE STAT IV 07/13/17 23:49 07/13/17 23:50 DC 07/13/17 23:59 Diphenhydramine HCl (Benadryl) 12.5 mg ONCE ONCE IV 07/14/17 01:00 07/14/17 01:01 DC 07/14/17 00:58 Diphenhydramine HCl 50 mg 50 mg STK-MED ONCE .ROUTE 07/14/17 00:57 07/14/17 00:58 DC Magnesium Sulfate (Magnesium Sulfate 2 Gm/50 ml) 50 ml @ 25 mls/hr ONCE ONCE IVPB 07/14/17 01:00 07/14/17 02:59 07/14/17 01:51 IV Flush 10 ml 10 ml STK-MED ONCE .ROUTE 07/14/17 01:08 07/14/17 01:09 DC 07/14/17 01:14 Sodium Chloride 100 ml @ ud STK-MED ONCE .ROUTE 07/14/17 01:08 07/14/17 01:09 DC 07/14/17 01:14 Iohexol (Omnipaque) 100 ml @ ud STK-MED ONCE .ROUTE 07/14/17 01:08 07/14/17 01:09 DC 07/14/17 01:14 Albuterol (Proventil 0.083% (Neb)) 10 mg ONCE ONCE N 07/14/17 01:24 07/14/17 01:25 DC 07/14/17 01:37 Ipratropium [place] (Atrovent 0.02% (Neb)) 0.5 mg ONCE ONCE N 07/14/17 01:24 07/14/17 01:25 DC 07/14/17 01:38 Ondansetron HCl (Zofran Inj) 4 mg ER BRIDGE PRN IV NAUSEA AND/OR VOMITING 07/14/17 02:30 07/15/17 02:29 Acetaminophen (Tylenol Tab) 650 mg ER BRIDGE PRN PO MILD PAIN/FEVER 07/14/17 02:30 07/15/17 02:29 Procedures/MDM Severe asthma exacerbation with hypoxic respiratory failure. Work of breathing was extreme. Patient was given a 15 mg and 1 mg Atrovent breathing treatment initially. She was placed on BiPAP. Towards the end of the breathing treatment the patient felt no relief. She was persistently tachycardic and hypoxic with a blood gas that did not show CO2 retention. For this reason thought that a PE was a possible etiology of her symptoms a CT angiogram ruled out PE. Patient did finally improve somewhat with another 10 mg albuterol treatment. She also given Solu-Medrol, magnesium sulfate push. Patient chooses to continue on BiPAP because she believes it makes her breathing much better. She is improved she will be admitted to telemetry. Spoke with Dr. Hackett will be admitting , EKG interpretation: Sinus tachycardia rate of 113, normal axis, normal intervals , no ST-T wave changes concerning for acute ischemia. factorer interpretation: Sinus tachycardia followed by normal sinus rhythm Chest x-ray interpretation: I see no acute process, I see no pulmonary edema, no infiltrate, no pneumothorax, no fractures Critical care time greater than 35 minutes: This includes patient with unstable vital signs and risk of acute decompensation, use of noninvasive positive pressure ventilation, preparation for intubation, BiPAP management, chart reviewed, multiple visits the patient's bedside to reassess status, discussion with patient admitting doctor. This does not include any billable procedures Departure Diagnosis: Primary Impression: Respiratory failure with hypoxia Additional Impression: Asthma with acute exacerbation Condition: DOMENICA Cardoso DO Jul 14, 2017 01:24
--- NOTE | 2017-07-14 01:53 | RADRPT ---
PROCEDURE: CT angiogram of the chest with contrast. CLINICAL INDICATION: Shortness of breath. TECHNIQUE: CT angiogram of the chest was obtained using a multi-detector high-resolution CT. Con tiguous axial images were obtained during the dynamic injection of 85 cc of Omnipaque 350 intravenou s contrast. Coronal and sagittal reformatted images were obtained. 3-D reformatted images were als o obtained. Images were reviewed on a PACS workstation. One or more of the following dose reduction techniques were used: - Automated exposure control. - Adjustment of the mA and/or kV according to patient size. - Use of iterative reconstruction technique. Exam CTD/vol = 16.65 mGy. Total exam DLP = 646.49 mGy-cm. COMPARISON: None. FINDINGS: The main pulmonary artery followed to the segmental divisions are well opacified. There is no filli ng defect or evidence of pulmonary embolism. The heart is normal in size. There is no pericardial thickening or effusion. The aorta is of normal course and caliber without evidence of aneurysm or d issection. There is no evidence of chest wall mass. The visualized thyroid is unremarkable. There are no enla rged axillary lymph nodes. There are no enlarged mediastinal or hilar lymph nodes by CT criteria. There is no parenchymal nodule or consolidation. There is no pleural effusion. The central tracheo bronchial tree is within normal limits. Limited evaluation of the upper abdomen is unremarkable. IMPRESSION: No evidence of pulmonary embolism or aortic dissection. .Jaycob Ellis MD, MD Date Time Electronically viewed and signed by .Jaycob Ellis MD, MD on 07/14/2017 01:53 .T/
[2017-07-14] MEDS ORDERED: ACETAMINOPHEN 325 MG TAB PO PRN (02:30)
[2017-07-14] MEDS ORDERED: ONDANSETRON 4 MG INJ IV PRN ×2 (02:30→05:00)
[2017-07-14] MEDS ORDERED: LORA10TA55 PO (03:38)
[2017-07-14] MEDS ORDERED: NACL 0.9% 3 ML SYG IV SCH (05:00)
[2017-07-14] MEDS ORDERED: BISACODYL (EC) 5 MG TAB PO PRN (05:00)
[2017-07-14] MEDS ORDERED: DOCUSATE SODIUM 100 MG CAP PO PRN (05:00)
[2017-07-14] MEDS: SOD CHLORIDE 0.9% 1,000 ML IV SCH ×2 (05:30→21:25)
--- NOTE | 2017-07-14 06:20 | HP ---
Date/Time of Note Date/Time of Note DATE: 07/14/17 TIME: 06:10 Assessment/Plan VTE Prophylaxis VTE Prophylaxis Intervention: SCD's Lines/Catheters IV Catheter Type (from [facility]): Peripheral IV Urinary Cath still in place: No Assessment/Plan Chief Complaint/Hosp Course This is a 41-year-old female who is being admitted to the telemetry floor for: #1 acute asthma exacerbation: Likely incited by environmental factors and/or underlying infection. Is now weaned off of her BiPAP and currently on nasal cannula. At the current time patient does have a elevated white blood cell count of 15 however she is afebrile. She did recently complete a course of amoxicillin. At the current time we will treat her with albuterol nebulization every 4 hours, will also put her on prednisone burst. Will order CRP level to assess for any bacterial infection as right now the chest x-ray and CTA of the chest were negative for any signs of infection and no signs of any PE. And if it from a course of a different antibiotic as well. She also received IV magnesium in the ED. also need refill on her inhaler upon discharge. #2 asthma: Patient will need a refill of inhaler upon discharge, please see number #1. #3 DVT and GI prophylaxis: SCDs, acid jessica Strategy will be implemented as per the clinical course Problems: HPI/ROS Admit Date/Time Admit Date/Time Jul 14, 2017 at 02:09 Hx of Present Illness chief Complaint: Shortness of breath This 41-year-old female comes emergency room for severe shortness of breath that began several hours ago and is gotten worse throughout the day. She does have a history of asthma. Patient does state that she was sick with bronchitis over the last week or so and was treated with amoxicillin. She states that prior she had fevers and cough that was productive of green phlegm at this time the fevers have resolved she does still have slight green phlegm. Upon arrival in the ED patient did require breathing support with BiPAP however upon my examination patient has been weaned off of BiPAP and is currently on nasal cannula. Allergies: NKDA Patient's: See JAN OZZIE Const: As per HPI Eyes : No pain discharge or redness or change in visual acuity ENT: No pain, sore throat, congestion, congestion, dysphagia or discharge Respiratory: As per HPI Cardiovascular: No chest pain, palpitation, PND, or edema GI : no change in appetite, abdominal pain, nausea, vomiting, diarrhea, constipation, or change in the color his stool Genitourinary: No dysuria, hematuria, flank pain , discharge or CVA tenderness Musculoskeletal: No joint pain, back pain, neck pain, restricted range of motion in neck or joints Skin: No rash, bruising or hives Neuro: No headache, dizziness, syncope, seizure, focal weakness Endocrine: No polyuria, polydipsia, temperature intolerance Psych: No hallucination, depression, anxiety or suicidal ideation PMH/Family/Social Past Medical History Asthma Past Surgical History Past Surgical Hx: no surgical history Family History Significant Family History: no pertinent family hx Social History Alcohol Use: none Smoking Status: Never smoker Drug Use: none Exam/Review of Systems Vital Signs Vitals Vital Signs Date Time Temp Pulse Resp B/P Pulse Ox O2 Delivery O2 Flow Rate FiO2 07/14/17 04:12 98.0 103 19 106/52 94 07/14/17 03:30 4.0 07/14/17 02:00 BIPAP 07/14/17 01:43 50 Exam Exam General: Lying in bed and sleeping and in no acute respiratory distress, easily arousable HEENT: Atraumatic, normocephalic. The pupils are equal, round and reactive. Extraocular motor are intact Neck: Supple with full range of motion. No rigidity or meningismus Chest: Nontender Lungs: Mild expiratory wheezing, no use of accessory respiratory muscles Heart: Normal S1-S2, Regular rhythm and rate. No overt murmurs appreciated Abdomen: Soft , nontender, nondistended , bowel sounds are present. No guarding no rebound tenderness , No masses or organomegaly. No costovertebral temporal angle mass Extremities: Normal to inspection, no edema no cyanosis Neurologic: Normal mental status, speech normal, cranial nerves II through XII are intact, motor and sensory are intact, no focal weakness Additional Comments PROCEDURE: Portable chest x-ray. CLINICAL INDICATION: 41 years of age, female. Shortness of breath. TECHNIQUE: Portable AP view of the chest. COMPARISON: None available. FINDINGS: Cardiomediastinal contours are normal. Lungs are clear. Negative for pleural effusion or pneumothorax. No acute bony abnormality. IMPRESSION: Negative for evidence of acute chest process. RPTAT: HCTS Physician Eliana Date Time Electronically viewed and signed by Physician Eliana on 07/14/2017 00: 51 CS/ PROCEDURE: CT angiogram of the chest with contrast. CLINICAL INDICATION: Shortness of breath. TECHNIQUE: CT angiogram of the chest was obtained using a multi-detector high -resolution CT. Contiguous axial images were obtained during the dynamic injection of 85 cc of Omnipaque 350 intravenous contrast. Coronal and sagittal reformatted images were obtained. 3-D reformatted images were also obtained. Images were reviewed on a PACS workstation. One or more of the following dose reduction techniques were used: - Automated exposure control. - Adjustment of the mA and/or kV according to patient size. - Use of iterative reconstruction technique. Exam CTD/vol = 16.65 mGy. Total exam DLP = 646.49 mGy-cm. COMPARISON: None. FINDINGS: The main pulmonary artery followed to the segmental divisions are well opacified. There is no filling defect or evidence of pulmonary embolism. The heart is normal in size. There is no pericardial thickening or effusion. The aorta is of normal course and caliber without evidence of aneurysm or dissection. There is no evidence of chest wall mass. The visualized thyroid is unremarkable. There are no enlarged axillary lymph nodes. There are no enlarged mediastinal or hilar lymph nodes by CT criteria. There is no parenchymal nodule or consolidation. There is no pleural effusion. The central tracheobronchial tree is within normal limits. Limited evaluation of the upper abdomen is unremarkable. IMPRESSION: No evidence of pulmonary embolism or aortic dissection. .Jaycob Ellis MD, MD Date Time Electronically viewed and signed by .Jaycob Ellis MD, MD on 07/14/2017 01:53 .T/ CC: DOMENICA JEFFRIES DO Labs Result Diagram: 07/14/17 0015 07/14/17 0015 Medications Medications Current Medications Sodium Chloride (NS) 1,000 ml @ 70 mls/hr [id number] IV Last administered on t 05:30; Admin Dose 70 MLS/HR; Start 07/14/17 at 04:48 Ondansetron HCl (Zofran Inj) 4 mg Q6H PRN IV NAUSEA AND/OR VOMITING; Start 07/14 at 05:00 Acetaminophen (Tylenol Tab) 650 mg Q6H PRN PO PAIN LEVEL 1-3 OR FEVER; Start at 05:00 Docusate Sodium (Colace) 100 mg Q12H PRN PO CONSTIPATION; Start 07/14/17 at 05: 00 Bisacodyl (Dulcolax) 5 mg DAILY PRN PO CONSTIPATION; Start 07/14/17 at 05:00 Famotidine (Pepcid) 20 mg Q12 PO ; Start 07/14/17 at 09:00 Prednisone (Prednisone) 60 mg DAILY PO ; Start 07/14/17 at 09:00 WENCESLAO KEYS Jul 14, 2017 06:20
[2017-07-14 07:31] LABS: ADD UMIC NO; UR ASCORBIC ACID NEGATIVE (NEGATIVE); UR BILIRUBIN (Dip) NEGATIVE (NEGATIVE); UR BLOOD (Dip) NEGATIVE (NEGATIVE); UR CLARITY CLEAR (CLEAR); UR COLOR YELLOW (YELLOW); UR GLUCOSE (Dip) 2+ mg/dL (NEGATIVE); UR KETONES (Dip) TRACE mg/dL (NEGATIVE); UR LEUKOCYTE ESTERASE (Dip) NEGATIVE Leu/ul (NEGATIVE); UR NITRITE (Dip) NEGATIVE (NEGATIVE); UR SPECIFIC GRAVITY (Dip) 1.046 (1.003-1.030); UR TOTAL PROTEIN (Dip) NEGATIVE (NEGATIVE); UR UROBILINOGEN (Dip) NEGATIVE (NEGATIVE)
[2017-07-14 07:41] LABS: CHOL/HDL RATIO 2.3 RATIO; MAGNESIUM 2.2 mg/dl (1.7-2.5)
[2017-07-14 08:02] LABS: THYROID STIMULATING HORMONE 0.807 MIU/L (0.465-4.680)
[2017-07-14] MEDS: FAMOTIDINE 20 MG TAB PO SCH ×2 (08:05→21:26)
[2017-07-14] MEDS ORDERED: predniSONE 20 MG TAB PO SCH (09:00)
[2017-07-14] MEDS: ALBUTEROL 0.083% (NEB) 2.5 MG/3 ML AMP HHN SCH ×4 (09:09→20:15)
[2017-07-14 09:11] LABS: ABNORMAL IP MESSAGE 1; BASOPHILS % 0.2 % (0.0-2.0); HEMATOCRIT 38.9 % (37.0-47.0); LYMPHOCYTES # 0.4 10^3/ul (0.8-2.9); LYMPHOCYTES % 3.6 % (15.0-51.0); MEAN CORPUSCULAR HEMOGLOBIN 30.8 pg (29.0-33.0); MEAN CORPUSCULAR HGB CONC 33.4 g/dl (32.0-37.0); MEAN CORPUSCULAR VOLUME 92.2 fl (82.0-101.0); MEAN PLATELET VOLUME 11.4 fl (7.4-10.4); MONOCYTE # 0.1 10^3/ul (0.3-0.9); MONOCYTES % 0.9 % (0.0-11.0); NEUTROPHILS % 94.7 % (39.0-77.0); PLATELET COUNT 251 10^3/UL (140-415); RED BLOOD COUNT 4.22 10^6/ul (4.20-5.40); RED CELL DISTRIBUTION WIDTH 13.4 % (11.5-14.5); WHITE BLOOD COUNT 10.7 10^3/ul (4.8-10.8)
[2017-07-14 09:21] LABS: POSITIVE DIFF @See below
--- NOTE | 2017-07-14 15:07 | QN ---
Documentation Comment Patient seen and examined. She was admitted early this am on bipap but currently tolerating room air. She is currently not experiencing any wheezing, shortness of breath, dizziness, chest pain, or lightheadedness 1. ?Exacerbation of reactive airway disease - Will need PFT as outpatient to be properly diagnosed with asthma - Admits to 4-5 episodes of SOB during the week and does wake up 1-2 times a week at night with symptoms - Will start albuterol prn, combo inhaler, and singular - Will taper steroids - Will arrange for follow up with Pulm after discharge HONG MASON MD Jul 14, 2017 15:07
[2017-07-14] MEDS: ACETAMINOPHEN 325 MG TAB PO PRN ×2 (16:20→22:46)
[2017-07-14] MEDS ORDERED: MONTELUKAST 10 MG TAB PO SCH (21:00)
[2017-07-14] MEDS: SALMETEROL/FLUTICASONE 250/50 INHA INH SCH (21:25)
[2017-07-15] VITALS: PULSE 95
[2017-07-15] MEDS: ALBUTEROL 0.083% (NEB) 2.5 MG/3 ML AMP HHN SCH ×4 (01:12→12:20)
[2017-07-15 04:25] VITALS: BP 111/59; RESP 18
[2017-07-15 04:29] VITALS: PULSE 88
[2017-07-15 07:18] LABS: BASOPHIL # 0.1 10^3/ul (0.0-0.1); BASOPHILS % 0.4 % (0.0-2.0); EOSINOPHILS # 0.1 10^3/ul (0.0-0.5); EOSINOPHILS % 0.3 % (0.0-7.0); HEMATOCRIT 41.6 % (37.0-47.0); HEMOGLOBIN 13.3 g/dl (12.0-16.0); LYMPHOCYTES # 3.7 10^3/ul (0.8-2.9); LYMPHOCYTES % 21.3 % (15.0-51.0); MEAN CORPUSCULAR HEMOGLOBIN 29.6 pg (29.0-33.0); MEAN CORPUSCULAR VOLUME 92.4 fl (82.0-101.0); MEAN PLATELET VOLUME 11.4 fl (7.4-10.4); MONOCYTES % 5.8 % (0.0-11.0); NEUTROPHILS % 71.8 % (39.0-77.0); PLATELET COUNT 273 10^3/UL (140-415); WHITE BLOOD COUNT 17.3 10^3/ul (4.8-10.8)
[2017-07-15 07:29] VITALS: BP 119/69; RESP 18
[2017-07-15 08:15] LABS: ALBUMIN 3.6 g/dl (3.3-4.9); ALBUMIN/GLOBULIN RATIO 1.33; BILIRUBIN,INDIRECT 0.2 mg/dl (0-1.1); BILIRUBIN,TOTAL 0.2 mg/dl (0.2-1.3); CALCIUM 9.3 mg/dl (8.4-10.2); CREATININE 0.61 mg/dl (0.44-1.00); TOTAL PROTEIN 6.3 g/dl (6.1-8.1)
[2017-07-15] MEDS: FAMOTIDINE 20 MG TAB PO SCH (08:27)
[2017-07-15] MEDS: SOD CHLORIDE 0.9% 1,000 ML IV SCH (08:27)
[2017-07-15] MEDS: SALMETEROL/FLUTICASONE 250/50 INHA INH SCH (08:27)
[2017-07-15] MEDS ORDERED: predniSONE 20 MG TAB PO SCH (09:00)
--- NOTE | 2017-07-15 10:39 | PN ---
Date/Time of Note Date/Time of Note DATE: 07/15/17 TIME: 10:39 Assessment/Plan VTE Prophylaxis VTE Prophylaxis Intervention: LMWH Lines/Catheters IV [facility] Peripheral IV Urinary Cath still in place: No Assessment/Plan Assessment/Plan 1. Exacerbation of reactive airway disease - Patient doing well on new medications. Will prescribe Albuterol rescue inhaler, advair, and singulair upon discharge - Will also send home on prednisone taper - Requesting nebulizer machine and will ask case management for assistance - Will need PFT as outpatient to be properly diagnosed with asthma - Will arrange for follow up with Pulm after discharge 2. Leukocytosis - Most likely secondary to steroids - Patient denies any fevers and no signs of infection on imaging 3. Disposition - Stable for discharge home with follow up with PCP and establish care with Computer [employer]ided [employer]er - Will need repeat CBC to monitor WBC after completes steroid taper Subjective 24 Hr Interval Summary Free Text/Dictation Patient doing well and states shes feeling much better since starting on the new medications. Has been getting relief with nebulizer treatments as well and not requiring O2. Denies any wheezing, worsening shortness of breath, chest pain, fevers, chills, nausea, or vomiting. Exam/Review of Systems Vital Signs Vitals Vital Signs Date Time Temp Pulse Resp B/P Pulse Ox O2 Delivery O2 Flow Rate FiO2 07/15/17 08:36 92 20 98 Nasal Cannula 2.0 28 07/15/17 07:29 98.8 119/69 Intake and Output 07/14/17 07/14/17 07/15/17 15:00 23:00 07:00 Intake Total 1100 ml 280 ml Balance 1100 ml 280 ml Exam General: NAD, awake and alert CVS: S1, S2, regular rate and rhythm. no murmurs Lungs: CTA b/l. equal chest rise, no wheezing or crackles appreciated Abd: soft, NT, ND, +BS. no rebound or guarding Ext: moving all extremities, no cyanosis, clubbing, or edema Results Result Diagram: 07/15/17 0647 07/15/17 0647 Results 24 hrs Laboratory Tests Test 07/14/17 11:58 07/15/17 06:47 Thyroid Stimulating Hormone (TSH) 0.510 White Blood Count 17.3 #H Red Blood Count 4.50 Hemoglobin 13.3 Hematocrit 41.6 Mean Corpuscular Volume 92.4 Mean Corpuscular Hemoglobin 29.6 Mean Corpuscular Hemoglobin Concent 32.0 Red Cell Distribution Width 14.0 Platelet Count 273 Mean Platelet Volume 11.4 H Neutrophils % 71.8 Lymphocytes % 21.3 Monocytes % 5.8 Eosinophils % 0.3 Basophils % 0.4 Nucleated Red Blood Cells % 0.0 Neutrophils # (Manual) 12.4 H Lymphocytes # 3.7 H Monocytes # 1.0 H Eosinophils # 0.1 Basophils # 0.1 Nucleated Red Blood Cells # 0.0 Sodium Level 140 Potassium Level 4.0 Chloride Level 110 Carbon Dioxide Level 21 Anion Gap 13 Blood Urea Nitrogen 12 Creatinine 0.61 Glucose Level 91 Calcium Level 9.3 Magnesium Level 2.1 Total Bilirubin 0.2 Direct Bilirubin 0.00 Indirect Bilirubin 0.2 Aspartate Amino Transf (AST/SGOT) 37 Alanine Aminotransferase (ALT/SGPT) 52 Alkaline Phosphatase 89 Total Protein 6.3 Albumin 3.6 Globulin 2.70 Albumin/Globulin Ratio 1.33 Medications Medications Current Medications Sodium Chloride (NS) 1,000 ml @ 70 mls/hr [id number] IV Last administered on 21:25; Admin Dose 70 MLS/HR; Start 07/14/17 at 04:48 Ondansetron HCl (Zofran Inj) 4 mg Q6H PRN IV NAUSEA AND/OR VOMITING; Start 07/14 at 05:00 Acetaminophen (Tylenol Tab) 650 mg Q6H PRN PO PAIN LEVEL 1-3 OR FEVER Last administered on 07/14/17 22:46; Admin Dose 650 MG; Start 07/14/17 at 05:00 Docusate Sodium (Colace) 100 mg Q12H PRN PO CONSTIPATION; Start 07/14/17 at 05: 00 Bisacodyl (Dulcolax) 5 mg DAILY PRN PO CONSTIPATION; Start 07/14/17 at 05:00 Famotidine (Pepcid) 20 mg Q12 PO Last administered on 07/15/17 08:27; Admin Dose 20 MG; Start 07/14/17 at 09:00 Prednisone (Prednisone) 40 mg DAILY PO Last administered on 07/15/17 08:27; Admin Dose 40 MG; Start 07/15/17 at 09:00 Montelukast Sodium (Singulair) 10 mg HS PO Last administered on 07/14/17 21:26 ; Admin Dose 10 MG; Start 07/14/17 at 21:00 Salmeterol Xinafoate/ Fluticasone (Advair 250/50 Diskus) 1 inh BID INH Last administered on 07/15/17 08:27; Admin Dose 1 INH; Start 07/14/17 at 21:00 HONG MASON MD Jul 15, 2017 10:39
[2017-07-15 11:14] VITALS: BP 94/60; RESP 20
--- NOTE | 2017-07-15 11:30 | RADRPT ---
PROCEDURE: XR Chest. CLINICAL INDICATION: Asthma exacerbation TECHNIQUE: Single frontal view of the chest was obtained COMPARISON: Chest x-ray 07/14/2017 FINDINGS: The cardiomediastinal silhouette is within normal limits. No pneumothorax or pleural effusion is identified. Subtle increased ill-defined opacity at the left costophrenic angle may represent atelectasis versus overlying soft tissues. A developing infiltrate is considered less likely. There is no evidence of pulmonary vascular congestion. The osseous structures, as visualized, are unremarkable. IMPRESSION: Subtle increased ill-defined opacity at the left costophrenic angle may represent atelectasis versus overlying soft tissues. A developing infiltrate is considered less likely. RPTAT: QQ Physician Davon Date Time Electronically viewed and signed by Physician Davon on 07/15/2017 11:30 /
--- NOTE | 2017-07-15 11:34 | PDOCDIS ---
Discharge Instructions DIAGNOSIS Discharge Diagnosis Exacerbation of reactive airway disease CONDITION Patient Condition: Good HOME CARE INSTRUCTIONS: Diet Instructions: RegularSpecial Diet: Regular ACTIVITY: Activity Restrictions: No Restrictions FOLLOW UP/APPOINTMENTS Follow-up Plan Please call Dr. Guerrero's office (Pulmonology) upon discharge. Let them know you were recently discharged from the hospital Office Address [address] [place] [id number] Office - Take Prednisone as instructed 40mg for 2 days, 30mg for 2 days 20mg for 2 days, 10mg for 2 days, 5mg for 2 days then stop - Make sure to rinse mouth out after use Advair - Please see your PCP in 1-2 weeks to have your white blood cell count checked. SCHOOL/WORK RELEASE May return to School/Work on: Jul 18, 2017 May return to School/Work with: No Restrictions HONG MASON MD Jul 15, 2017 11:34
[2017-07-15] MEDS ORDERED: PRED10TA PO (11:42)
[2017-07-15] MEDS ORDERED: ADV25050 INH (11:42)
[2017-07-15] MEDS ORDERED: MONT10TA24 PO (11:42)
--- NOTE | 2017-07-16 08:37 | DS ---
Date/Time of Note Date/Time of Note DATE: 07/16/17 TIME: 08:30 Discharge Summary Admission/Discharge Info Admit Date/Time Jul 14, 2017 at 02:09 Discharge Date/Time Jul 15, 2017 at 14:40 Discharge Diagnosis Exacerbation of reactive airway disease Patient Condition: Good Hx of Present Illness chief Complaint: Shortness of breath This 41-year-old female comes emergency room for severe shortness of breath that began several hours ago and is gotten worse throughout the day. She does have a history of asthma. Patient does state that she was sick with bronchitis over the last week or so and was treated with amoxicillin. She states that prior she had fevers and cough that was productive of green phlegm at this time the fevers have resolved she does still have slight green phlegm. Upon arrival in the ED patient did require breathing support with BiPAP however upon my examination patient has been weaned off of BiPAP and is currently on nasal cannula. Hospital Course This is a 41-year-old female who is being admitted to the telemetry floor for exacerbation of reactive airway disease. Patient states she has only been experiencing SOB symptoms since Spring. She does admit that her daughter who lives with her owns a cat. Patient was started on steroids and neb treatments. CXR and CTA were negative for any signs of acute infection or PE. Patient admitted to experiencing 4-5 episodes of SOB weekly with 2-3 nocturnal episodes. She was started on Prednisone, combo inhaler, spiriva, claritin, and albuterol PRN for SOB. Her SOB improved and patient did not need BIPAP during the remainder of hospitalization. She was saturating well on room air and discharged home on medications started during hospitalization. Patient was maintaining saturations and no longer experiencing SOB. She was discharged home in good condition. Home Meds Active Scripts Salmeterol Xinaf/Fluticasone* (Advair*) 250-50 Diskus Inhaler, 1 INH INH BID for 30 Days, #2 DISK Prov:HONG MASON MD 07/15/17 Montelukast Sodium* (Montelukast Sodium*) 10 Mg Tablet, 10 MG PO HS for 30 Days , #30 TAB Take one tablet by mouth daily at night Prov:HONG MASON MD 07/15/17 Prednisone* (Prednisone*) 10 Mg Tab, 10 MG PO DAILY for 10 Days, #21 TAB Take 40 mg (4) for 2 days, then 30mg (3) for 2 days, then 20mg (2) for 2 days then 10mg (1) for 2 days then 5mg (0.5) for 2 days Prov:HONG MASON MD 07/15/17 Fluticasone Propionate (Flonase Allergy Relief) 9.9 Ml [place].susp, 1 SPRAY NASAL BID, #1 BOTTLE TO EACH NOSTRIL Prov:GURVINDER MUNGUIA PA-C 06/16/17 Hydrocortisone* Topical (Hydrocortisone* Topical) 1%-28.35 Gm Cream..g., 1 APPLIC TOP Q6 Y for ITCHING, #1 TUB Prov:TRISTEN ROBBINS 02/21/17 Albuterol Sulfate* (Ventolin HFA*) 18 Gm Hfa.aer.ad, 2 PUFF INHALATION Q4H, #1 INHALER Prov:AILYN DUTTA MD 12/31/16 Reported Medications Loratadine (NON-DROWSY ALLERGY) 10 Mg Tablet, 10 MG PO DAILY, TAB 07/14/17 Discontinued Scripts Guaifenesin-Codeine Phosphate* (Guaifenesin* AC Cough Syrup) 473 Ml Liquid, 10 ML PO Q4H Y for COUGH, #120 ML Prov:JAKOB SKAGGS COMPRESSOR SERVICE TECHNICIAN 01/18/17 Ibuprofen* (Motrin*) 800 Mg Tab, 800 MG PO Q8, #30 TAB Prov:ARIEL MCNEAL COMPRESSOR SERVICE TECHNICIAN 03/14/16 Cetirizine Hcl* (Zyrtec*) 10 Mg Capsule, 10 MG PO DAILY, #10 TAB.CHEW Prov:GURVINDER MUNGUIA PA-C 06/16/17 Prednisone* (Prednisone*) 20 Mg Tab, 60 MG PO DAILY for 4 Days, TAB Prov:GURVINDER MUNGUIA PA-C 06/16/17 Albuterol Sulfate* (Proair HFA*) 8.5 Gm Hfa.aer.ad, 2 PUFF INH Q4, #1 INHALER Prov:GURVINDER MUNGUIA PA-C 06/16/17 Albuterol Sulfate* (Proair HFA*) 8.5 Gm Hfa.aer.ad, 2 PUFF INH Q4, #1 INHALER Prov:ERIN PAEZ PA-C 05/27/17 Azithromycin* (Zithromax* Tri-Leonardo) 500 Mg Tablet, 500 MG PO DAILY for 3 Days, TAB Prov:ERIN PAEZ PA-C 05/27/17 Triamcinolone Acetonide* (Kenalog*) 0.025%-60ML Lotion, 1 APPLIC TOP BID, #1 BOTTLE Prov:ERIN PAEZ PA-C 05/27/17 Prednisone* (Prednisone*) 20 Mg Tab, 40 MG PO DAILY for 4 Days, TAB Prov:ERIN PAEZ PA-C 05/27/17 Sodium Chloride (Saline Nasal [place]) 30 Ml [place], 30 ML NS BID for 14 Days, SPRAY Prov:SAMUEL GIVENS PA-C 03/13/17 Benzonatate* (Tessalon Perle*) 100 Mg Capsule, 100 MG PO Q8H Y for COUGH for 14 Days, CAP Prov:SAMUEL GIVENS PA-C 03/13/17 Albuterol Sulfate* (Proair HFA*) 8.5 Gm Hfa.aer.ad, 2 PUFF INH Q4, #1 INHALER Prov:SAMUEL GIVENS PA-C 03/13/17 Albuterol Sulfate* (Proair HFA*) 8.5 Gm Hfa.aer.ad, 2 PUFF INH Q4, #1 INHALER Prov:PEDRO ROMERO PA-C 03/11/17 Prednisone* (Prednisone*) 20 Mg Tab, 40 MG PO DAILY for 4 Days, TAB Prov:PEDRO ROMERO PA-C 03/11/17 Azithromycin* (Zithromax*) 250 Mg Tablet, 250 MG PO .GEMMA DIRECTED, #6 TAB TAKE 500 MG (2 TABS) THE FIRST DAY THEN 250 MG (1 TAB) DAYS 2-5 Prov:TRISTEN ROBBINS 02/21/17 Albuterol Sulfate* (Proair HFA*) 8.5 Gm Hfa.aer.ad, 2 PUFF INH Q4, #1 INHALER Prov:TRISTEN ROBBINS 02/21/17 Ibuprofen* (Motrin*) 600 Mg Tab, 600 MG PO Q6H Y for PAIN AND OR ELEVATED TEMP, #30 TAB Prov:JAKOB SKAGGS NP 01/18/17 Cetirizine Hcl* (Zyrtec*) 10 Mg Capsule, 10 MG PO DAILY, #30 TAB.CHEW Prov:JAKOB SKAGGS NP 01/18/17 Prednisone* (Prednisone*) 50 Mg Tablet, 50 MG PO DAILY, #5 TAB Prov:JAKOB SKAGGS NP 01/18/17 Albuterol Sulfate* (Proair HFA*) 8.5 Gm Hfa.aer.ad, 2 PUFF INH Q4H Y for WHEEZING AND SOB, #1 INHALER Prov:JAKOB SKAGGS NP 01/18/17 Azithromycin* (Zithromax*) 250 Mg Tablet, 250 MG PO .MariumPAJOEL DIRECTED, #6 TAB TAKE 500 MG (2 TABS) THE FIRST DAY THEN 250 MG (1 TAB) DAYS 2-5 Prov:AILYN DUTTA MD 12/31/16 Prednisone* (Prednisone*) 20 Mg Tab, 60 MG PO DAILY for 5 Days, TAB 60 mg by mouth for 2 days then 40 mg by mouth for 3 days Prov:AILYN DUTTA MD 12/31/16 Prednisone* (Prednisone*) 20 Mg Tab, 40 MG PO DAILY for 4 Days, TAB Prov:SAMUEL GIVENS PA-C 11/24/16 Azithromycin* (Zithromax*) 250 Mg Tablet, 250 MG PO .MariumPAJOEL DIRECTED, #6 TAB TAKE 500 MG (2 TABS) THE FIRST DAY THEN 250 MG (1 TAB) DAYS 2-5 Prov:SAMUEL GIVENS PA-C 11/24/16 Benzonatate* (Tessalon Perle*) 100 Mg Capsule, 100 MG PO Q8H Y for COUGH for 14 Days, CAP Prov:SAMUEL GIVENS PA-C 11/24/16 Dextromethorphan Hb-Promethazine Hcl (Promethazine DM Syrup) 473 Ml Syrup, 2.5 ML PO Q6H Y for COUGH, #4 OZ Prov:SAMUEL GIVENS PA-C 11/24/16 Hydrocodone Bit-Acetaminophen* (Butler*) 5-325 Mg Tab, 1 TAB PO Q6 Y for PAIN, # 20 TAB Prov:TRISTEN ROBBINS 03/16/16 Hydrocodone Bit-Acetaminophen* (Butler*) 5-325 Mg Tab, 1 TAB PO Q6 Y for SEVERE PAIN LEVEL 7-10, #7 TAB Prov:ARIEL MCNEAL NP 03/14/16 Cephalexin* (Keflex*) 500 Mg Capsule, 500 MG PO QID for 7 Days, CAP Prov:ARIEL MCNEAL NP 03/14/16 Sulfamethoxazole-Trimethoprim* (Bactrim* DS) 800-160 Mg Tab, 1 TAB PO BID for 7 Days, TAB Prov:ARIEL MCNEAL NP 03/14/16 Follow-up Plan Continue Advair, Spiriva, Albuterol PRN, Claritin, and 10 day prednisone taper Follow up with Dr. Guerrero, Biology Department Chair Primary Care Provider Imelda Mclain Time spent on discharge: > 30 minutes ( spent on discharging patient, all questions and concerns were answered) HONG MASON MD Jul 16, 2017 08:37
== END 2017-07-15 14:40 | disposition home or self-care (01) | DRG 203 ==
LOC: FTE 23:41 → TEL 07-14 02:09
PROVIDERS: ADMIT Family Medicine; ATTEND Family Medicine
DX: J45.901 Unspecified asthma with (acute) exacerbation (principal); D72.829 Elevated white blood cell count, unspecified
CPT/HCPCS: 36415; 36600; 71010; 71275; 80048; 80053; 80061; 81003; 82803; 83036; 83735; 83880; 84443; 84484; 84703; 85025; 86140; 93005; 94640; 94644; 94645; 94660; 94664; 96374; 96375; J1200; J2930; J3475; J7030; J7512; Q9967

== ENCOUNTER 2017-09-13 20:37 | Emergency (ER) | payer OTHER ==
[~2017-09-13] VITALS: Ht 160 cm; Wt 94.8 kg
[~2017-09-13 20:37] MED LIST changes: +ADV25050 INH; -ALBU8.5H3 INH; -AZIT250T94 PO; -AZIT500T2 PO; -BACTDS PO; -BENZ100C70 PO; -CEPH-443 PO; -CETI10CA PO; -D-ME473S18 PO; -GUAI473L22 PO; -HYDR-3498 PO; -IBUP-1542 PO; -IBUP800T25 PO; -KEN25L60 TOP; +LORA10TA55 PO; +MONT10TA24 PO; +PRED10TA PO; -PRED20TA PO; -PRED50TA PO; -SODI30SP2 NS
[2017-09-13 20:40] VITALS: Ht 160 cm; Wt 94.8 kg
[2017-09-13] MEDS ORDERED: IPRATROPIUM (NEB) 0.5 MG/2.5 ML AMP NEB STA (22:29)
[2017-09-13] MEDS ORDERED: ALBUTEROL 0.083% (NEB) 2.5 MG/3 ML AMP NEB STA (22:29)
[2017-09-13] MEDS ORDERED: DEXAMETHASONE 10 MG/ML 1 ML INJ IM STA (22:29)
--- NOTE | 2017-09-13 22:29 | ERD ---
ER Documentation Chief Complaint Chief Complaint BIB SELF, CC: ASTHMA EXACERBATION X 3 DAYS HPI This 41-year-old female presents to emergency department with symptoms of asthma exacerbation, ran out of MDI yesterday, sx usably controlled with albuterol, trigger by URI symptoms ROS All systems reviewed and are negative except as per history of present illness. Medications Home Meds Active Scripts Salmeterol Xinaf/Fluticasone* (Advair*) 250-50 Diskus Inhaler, 1 INH INH BID for 30 Days, #2 DISK Prov:HONG MASON MD 07/15/17 Montelukast Sodium* (Montelukast Sodium*) 10 Mg Tablet, 10 MG PO HS for 30 Days , #30 TAB Take one tablet by mouth daily at night Prov:HONG MASON MD 07/15/17 Prednisone* (Prednisone*) 10 Mg Tab, 10 MG PO DAILY for 10 Days, #21 TAB Take 40 mg (4) for 2 days, then 30mg (3) for 2 days, then 20mg (2) for 2 days then 10mg (1) for 2 days then 5mg (0.5) for 2 days Prov:HONG MASON MD 07/15/17 Fluticasone Propionate (Flonase Allergy Relief) 9.9 Ml [place].susp, 1 SPRAY NASAL BID, #1 BOTTLE TO EACH NOSTRIL Prov:GURVINDER MUNGUIA PA-C 06/16/17 Hydrocortisone* Topical (Hydrocortisone* Topical) 1%-28.35 Gm Cream..g., 1 APPLIC TOP Q6 Y for ITCHING, #1 TUB Prov:TRISTEN ROBBINS 02/21/17 Albuterol Sulfate* (Ventolin HFA*) 18 Gm Hfa.aer.ad, 2 PUFF INHALATION Q4H, #1 INHALER Prov:AILYN DUTTA MD 12/31/16 Reported Medications Loratadine (NON-DROWSY ALLERGY) 10 Mg Tablet, 10 MG PO DAILY, TAB 07/14/17 Allergies Allergies: Coded Allergies: No Known Allergy (Unverified , 05/26/17) PMhx/Soc Medical and Surgical Hx: pt denies Surgical Hx History of Surgery: No Anesthesia Reaction: No Hx Neurological Disorder: No Hx Respiratory Disorders: Yes (asthma) Hx Cardiac Disorders: No Hx Psychiatric Problems: No Hx Miscellaneous Medical Probl: No Hx Alcohol Use: Yes Hx Substance Use: No Hx Tobacco Use: No Smoking Status: Never smoker Physical Exam Vitals Vital Signs Date Time Temp Pulse Resp B/P Pulse Ox O2 Delivery O2 Flow Rate FiO2 09/13/17 22:42 89 20 97 21 09/13/17 20:40 98.2 54 25 126/66 94 Vitals stable, triage notes reviewed Physical Exam Const: Well-nourished well-appearing well-hydrated 41-year-old female in no acute distress Head: Eyes: ENT: Neck: Resp: Chest rises and falls symmetrically, inspiratory and expiratory wheeze, movable rhonchi nonclearing, no egophony Cardio: Regular rate and rhythm, no murmurs Abd: Skin: Back: Ext: Neur: Awake and alert Psych: Normal Mood and Affect Results 24 hrs Current Medications Medications (Trade) Dose Ordered Sig/Elle Route PRN Reason Start Time Stop Time Status Last Admin Dose Admin Albuterol (Proventil 0.083% (Neb)) 5 mg ONCE STAT NEB 09/13/17 22:29 09/13/17 22:31 DC 09/13/17 22:42 Ipratropium [place] (Atrovent 0.02% (Neb)) 0.5 mg ONCE STAT NEB 09/13/17 22:29 09/13/17 22:31 DC 09/13/17 22:42 Dexamethasone (Decadron) 10 mg ONCE STAT IM 09/13/17 22:29 09/13/17 22:31 DC 09/13/17 22:37 Procedures/MDM This 41-year-old female presents to emergency department with wheezing, reports she ran out of her albuterol inhaler yesterday, states asthma exacerbation secondary to respiratory infection. Patient does not use a maintenance inhaler states that she is usually controlled with albuterol. Emergency room course includes history and physical exam, positive for inspiratory and expiratory wheeze, coughing with deep breathing, loose movable rhonchi nonclearing. Patient receives albuterol, Atrovent, hand-held nebulized treatment, 10 mg of dexamethasone IM. Reassessment patient continues to have faint inspiratory expiratory wheeze, rhonchi audible, second albuterol treatment ordered. Post post auscultation improvement of wheezing, faint movable rhonchi, patient will be discharged home with albuterol MDI, 2 puffs every 4 hours as needed, cough, wheezing, follow-up with primary care physician for reevaluation of asthma, reduction of maintenance inhaler. Patient was told she did not require any additional steroid treatment today that the dexamethasone would stay in her system for 48 hours, increase fluids, increase rest, follow-up with primary physician as previously discussed. Patient is stable with no new complaints during ER course, clinically there is no current evidence to suggest meningitis , sepsis, acute abdomen, pneumonia, status asthmaticus, pulmonary embolism or any other emergent condition appearing to require further evaluation or hospitalization. I feel the patient is stable for discharge at this time. I have discussed results, examination findings, the treatment plan with the patient and family present prior to discharge. Indications for emergent reevaluation, side effects of medication were also discussed. All questions were answered. Patient verbalizes understanding and agrees with plan of care. Departure Diagnosis: Primary Impression: Asthma attack Asthma severity: mild Asthma persistence: persistent Qualified Code: J45.31 - Mild persistent asthma with exacerbation Condition: Good Patient Instructions: Asthma, Acute (Adult) [facility] Thank you for for coming to [facility] for your care today. Please ask your nurse or provider if you have questions about your care today and do not leave until all your questions have been answered. Please use any medications given as directed and follow-up with your doctor (or the doctor you were referred to) in the next 2-3 days. If you do not have a primary care doctor you may follow up at the [facility] (listed below). You may also use motrin and tylenol as needed for fever and/or pain unless instructed otherwise by your provider or nurse. Indications for more urgent follow-up have been discussed, but you may return to the Emergency Department at ANY time for any worrisome or worsening symptoms. If you have abdominal pain, please know that no test or exam you received is perfect and you should follow up within 8 hours for continued pain. If you had any imaging studies today, such as an X-Ray or CT Scan, these studies will be reviewed later by a radiologist. You will be called if there are important findings that were not identified today, so make sure the contact information you provided at registration is correct. If you received any narcotic pain control medicine today, such as Vicodin, Morphine or Dilaudid, your coordination and judgment may be affected for a number of hours. Please do not drive or operate heavy machinery, and you may want someone to assist you at home. If you were given a prescription for narcotic medication, be aware that it is very addictive- use sparingly and only if necessary. ZEUS SIMEON Sep 13, 2017 22:29
[2017-09-13] MEDS ORDERED: ALBUTEROL 0.083% (NEB) 2.5 MG/3 ML AMP HHN STA (23:40)
[2017-09-13] MEDS ORDERED: ALBU18HF INHALATION (23:46)
[2017-09-14 00:05] VITALS: BP 107/59; PULSE 85; RESP 18; TEMP 98.3
== END 2017-09-14 00:05 | disposition home or self-care (01) ==
LOC: FTE 20:37
DX: J45.31 Mild persistent asthma with (acute) exacerbation (principal)
CPT/HCPCS: 94640; 94664; 96372; J1100; Z7502; Z7610

== ENCOUNTER 2017-10-01 21:04 | Emergency (ER) | payer OTHER ==
[~2017-10-01] VITALS: Ht 160 cm; Wt 97.0 kg
[2017-10-01 21:10] VITALS: Ht 160 cm; Wt 97.0 kg
[2017-10-01] MEDS ORDERED: ALBUTEROL 0.083% (NEB) 2.5 MG/3 ML AMP NEB STA (21:44)
[2017-10-01] MEDS ORDERED: DEXAMETHASONE 10 MG/ML 1 ML INJ IM STA (21:44)
[2017-10-01] MEDS ORDERED: IPRATROPIUM (NEB) 0.5 MG/2.5 ML AMP NEB STA (21:44)
--- NOTE | 2017-10-01 21:44 | ERD ---
ER Documentation Chief Complaint Chief Complaint SOB,wheezing,coughing,&HAs x 4 days,ran out of inhaler HPI This 42 yr female presents to ED with cough and wheezing , tight chest. 4 days , patient reports that she is out of her albuterol inhaler, she currently is not on any maintenance medication, states that she was using her inhaler every 3 hours before it ran out with little relief of symptoms. ROS All systems reviewed and are negative except as per history of present illness. Medications Home Meds Active Scripts Montelukast Sodium* (Singulair*) 10 Mg Tablet, 10 MG PO QHS, #30 TAB Prov:CAILIN,ZEUS 10/01/17 Albuterol Sulfate* (Ventolin HFA*) 18 Gm Hfa.aer.ad, 2 PUFF INHALATION Q4H, #1 INHALER Prov:CAILIN,ZEUS 10/01/17 Budesonide (Pulmicort Flexhaler) 180 Mcg Aer.pow.ba, 180 MCG INH BID, #1 EA Prov:CAILIN,ZEUS 10/01/17 Albuterol Sulfate* (Ventolin HFA*) 18 Gm Hfa.aer.ad, 2 PUFF INHALATION Q4H, #1 INHALER Prov:CAILIN,ZEUS 09/13/17 Salmeterol Xinaf/Fluticasone* (Advair*) 250-50 Diskus Inhaler, 1 INH INH BID for 30 Days, #2 DISK Prov:HONG MASON MD 07/15/17 Montelukast Sodium* (Montelukast Sodium*) 10 Mg Tablet, 10 MG PO HS for 30 Days , #30 TAB Take one tablet by mouth daily at night Prov:HONG MASON MD 07/15/17 Prednisone* (Prednisone*) 10 Mg Tab, 10 MG PO DAILY for 10 Days, #21 TAB Take 40 mg (4) for 2 days, then 30mg (3) for 2 days, then 20mg (2) for 2 days then 10mg (1) for 2 days then 5mg (0.5) for 2 days Prov:HONG MASON MD 07/15/17 Fluticasone Propionate (Flonase Allergy Relief) 9.9 Ml [place].susp, 1 SPRAY NASAL BID, #1 BOTTLE TO EACH NOSTRIL Prov:GURVINDER MUNGUIA PA-C 06/16/17 Hydrocortisone* Topical (Hydrocortisone* Topical) 1%-28.35 Gm Cream..g., 1 APPLIC TOP Q6 Y for ITCHING, #1 TUB Prov:ITZELTRISTEN Chary 02/21/17 Albuterol Sulfate* (Ventolin HFA*) 18 Gm Hfa.aer.ad, 2 PUFF INHALATION Q4H, #1 INHALER Prov:AILYN DUTTA MD 12/31/16 Reported Medications Loratadine (NON-DROWSY ALLERGY) 10 Mg Tablet, 10 MG PO DAILY, TAB 07/14/17 Allergies Allergies: Coded Allergies: No Known Allergy (Unverified , 05/26/17) PMhx/Soc History of Surgery: No Anesthesia Reaction: No Hx Neurological Disorder: No Hx Respiratory Disorders: Yes (asthma) Hx Cardiac Disorders: No Hx Psychiatric Problems: No Hx Miscellaneous Medical Probl: No Hx Alcohol Use: Yes Hx Substance Use: No Hx Tobacco Use: No Smoking Status: Never smoker Physical Exam Vitals Vitals stable, triage notes reviewed Physical Exam Const: Well-nourished well-appearing well-hydrated 42-year-old female in no acute distress ENT: Normal External Ears, Nose and Mouth, mucous membranes moist Resp: Expiratory wheeze, diminished bases Cardio: Regular rate and rhythm, no murmurs Abd: Soft, non tender, non distended. No epigastric tenderness Ext: No cyanosis, or edema Neur: Awake and alert Psych: Normal Mood and Affect Results 24 hrs Current Medications Medications (Trade) Dose Ordered Sig/Elle Route PRN Reason Start Time Stop Time Status Last Admin Dose Admin Albuterol (Proventil 0.083% (Neb)) 5 mg ONCE STAT NEB 10/01/17 21:44 10/01/17 21:47 DC 10/01/17 22:04 Ipratropium [place] (Atrovent 0.02% (Neb)) 0.5 mg ONCE STAT NEB 10/01/17 21:44 10/01/17 21:47 DC 10/01/17 22:04 Dexamethasone (Decadron) 10 mg ONCE STAT IM 10/01/17 21:44 10/01/17 21:47 DC 10/01/17 21:54 Procedures/MDM This 42-year-old female presents to emergency department for evaluation of asthma exacerbation, patient ran out of MDI albuterol, patient reports tight chest, coughing, and shortness of breath. Patient states that symptoms routinely worsen around this time a year she currently is on no maintenance medication, emergency room course includes history and physical exam, exam is positive for expiratory wheeze and diminished bases findings are consistent with asthma exacerbation, plan to treat patient with 10 mg of dexamethasone, nebulized albuterol and Atrovent, patient receives treatment, post assessment shows decreased wheezing, patient reports feeling much improvement after treatment had been given. Is able to tolerate fluids and ambulate without shortness of breath, plan to discharge patient home with Ventolin inhaler Pulmicort twist inhaler 180 mcg 1 inhalation twice daily until discontinued by primary physician, patient also requests that her Singulair be refilled, patient was given a new prescription for Singulair, teaching provided that this medication could actually be acting as her maintenance medication, to follow-up with primary care physician, take all medications as prescribed, return to emergency department for shortness of breath, wheezing, or cough, fever, chest pain. Patient is stable with no new complaints during ER course, clinically there is no current evidence to suggest meningitis, sepsis, acute abdomen, acute coronary syndromes, pulmonary embolism or any other emergent condition appearing to require further evaluation or hospitalization. I feel the patient is stable for discharge at this time. I have discussed results, examination findings, the treatment plan with the patient and family present prior to discharge. Indications for emergent reevaluation, side effects of medication were also discussed. All questions were answered. Patient verbalizes understanding and agrees with plan of care. Departure Diagnosis: Primary Impression: Bronchitis, asthmatic Asthma severity: mild Asthma persistence: persistent Asthma complication type: uncomplicated Qualified Code: J45.30 - Mild persistent asthmatic bronchitis without complication Condition: Good Patient Instructions: Bronchitis, No Antibiotic (Adult) Additional Instructions: Thank you for for coming to [facility] for your care today. Please ask your nurse or provider if you have questions about your care today and do not leave until all your questions have been answered. Please use any medications given as directed and follow-up with your doctor (or the doctor you were referred to) in the next 2-3 days. If you do not have a primary care doctor you may follow up at the [facility] (listed below). You may also use motrin and tylenol as needed for fever and/or pain unless instructed otherwise by your provider or nurse. Indications for more urgent follow-up have been discussed, but you may return to the Emergency Department at ANY time for any worrisome or worsening symptoms. If you have abdominal pain, please know that no test or exam you received is perfect and you should follow up within 8 hours for continued pain. If you had any imaging studies today, such as an X-Ray or CT Scan, these studies will be reviewed later by a radiologist. You will be called if there are important findings that were not identified today, so make sure the contact information you provided at registration is correct. If you received any narcotic pain control medicine today, such as Vicodin, Morphine or Dilaudid, your coordination and judgment may be affected for a number of hours. Please do not drive or operate heavy machinery, and you may want someone to assist you at home. If you were given a prescription for narcotic medication, be aware that it is very addictive- use sparingly and only if necessary. ZEUS SIMENO Oct 01, 2017 21:44
[2017-10-01] MEDS ORDERED: MONT10TA21 PO (23:19)
[2017-10-01] MEDS ORDERED: ALBU18HF INHALATION (23:19)
[2017-10-01] MEDS ORDERED: PULM180 INH (23:19)
[2017-10-01 23:30] VITALS: PULSE 72; RESP 26
== END 2017-10-01 23:31 | disposition home or self-care (01) ==
LOC: FTE 21:04
DX: J45.30 Mild persistent asthma, uncomplicated (principal)
CPT/HCPCS: 94664; J1100; Z7610; 96372

== ENCOUNTER 2017-10-26 14:21 | Emergency (ER) | payer OTHER ==
[~2017-10-26] VITALS: Ht 152.4 cm; Wt 78.0 kg
[~2017-10-26 14:21] MED LIST changes: +MONT10TA21 PO; +PULM180 INH
[2017-10-26 14:24] VITALS: Ht 152.4 cm; Wt 78.0 kg
[2017-10-26] MEDS ORDERED: IPRATROPIUM (NEB) 0.5 MG/2.5 ML AMP NEB STA (16:06)
[2017-10-26] MEDS ORDERED: DEXAMETHASONE 10 MG/ML 1 ML INJ IM STA (16:06)
[2017-10-26] MEDS ORDERED: ALBUTEROL 0.083% (NEB) 2.5 MG/3 ML AMP NEB STA (16:06)
--- NOTE | 2017-10-26 16:12 | ERD ---
ER Documentation Chief Complaint Chief Complaint REFILL OF ASTHMA MEDS HPI Patient is a 42-year-old female with a history of asthma presents to the ED for concerns of medication refill as well as a cough 3 days. Patient states he ran out of her albuterol inhaler as well as Singulair 2 days ago. Patient requesting refill at this time. Patient also states she has had a cough for the last 3 days. Patient states the cough is primarily dry in nature however occasionally she has white productive sputum. Patient reports a fever of 101 Fahrenheit at home, she took Tylenol for [employer]. Patient denies any chest pain at rest. Patient states she has chest pain only when coughing. Patient denies any shortness of breath. Patient denies any nausea, vomiting, diaphoresis or loss of consciousness. Patient denies any abdominal pain. Patient denies any neck pain or neck stiffness. Patient denies any sick contacts. No recent travel. ROS All systems reviewed and are negative except as per history of present illness. Medications Home Meds Active Scripts Benzonatate* (Tessalon Perle*) 100 Mg Capsule, 100 MG PO Q8H Y for COUGH, #20 CAP Prov:SUDHIR COLE PA-C 10/26/17 Loratadine* (Claritin*) 10 Mg Tablet, 10 MG PO DAILY, #15 TAB Prov:SUDHIR COLE PA-C 10/26/17 Montelukast Sodium* (Singulair*) 10 Mg Tablet, 10 MG PO QHS, #30 TAB Prov:SUDHIR COLE PA-C 10/26/17 Albuterol Sulfate* (Proair HFA*) 8.5 Gm Hfa.aer.ad, 2 PUFF INH Q4, #1 INHALER Prov:SUDHIR COLE PA-C 10/26/17 Montelukast Sodium* (Singulair*) 10 Mg Tablet, 10 MG PO QHS, #30 TAB Prov:CAILIN,ZEUS 10/01/17 Albuterol Sulfate* (Ventolin HFA*) 18 Gm Hfa.aer.ad, 2 PUFF INHALATION Q4H, #1 INHALER Prov:CAILIN,ZEUS 10/01/17 Budesonide (Pulmicort Flexhaler) 180 Mcg Aer.pow.ba, 180 MCG INH BID, #1 EA Prov:CAILINCHANDNIZEUS 10/01/17 Albuterol Sulfate* (Ventolin HFA*) 18 Gm Hfa.aer.ad, 2 PUFF INHALATION Q4H, #1 INHALER Prov:CAILIN,ZEUS 09/13/17 Salmeterol Xinaf/Fluticasone* (Advair*) 250-50 Diskus Inhaler, 1 INH INH BID for 30 Days, #2 DISK Prov:HONG MASON MD 07/15/17 Montelukast Sodium* (Montelukast Sodium*) 10 Mg Tablet, 10 MG PO HS for 30 Days , #30 TAB Take one tablet by mouth daily at night Prov:HONG MASON MD 07/15/17 Prednisone* (Prednisone*) 10 Mg Tab, 10 MG PO DAILY for 10 Days, #21 TAB Take 40 mg (4) for 2 days, then 30mg (3) for 2 days, then 20mg (2) for 2 days then 10mg (1) for 2 days then 5mg (0.5) for 2 days Prov:HONG MASON MD 07/15/17 Fluticasone Propionate (Flonase Allergy Relief) 9.9 Ml [place].susp, 1 SPRAY NASAL BID, #1 BOTTLE TO EACH NOSTRIL Prov:GURVINDER MUNGUIA PA-C 06/16/17 Hydrocortisone* Topical (Hydrocortisone* Topical) 1%-28.35 Gm Cream..g., 1 APPLIC TOP Q6 Y for ITCHING, #1 TUB Prov:TRISTEN ROBBINS 02/21/17 Albuterol Sulfate* (Ventolin HFA*) 18 Gm Hfa.aer.ad, 2 PUFF INHALATION Q4H, #1 INHALER Prov:AILYN DUTTA MD 12/31/16 Reported Medications Loratadine (NON-DROWSY ALLERGY) 10 Mg Tablet, 10 MG PO DAILY, TAB 07/14/17 Allergies Allergies: Coded Allergies: No Known Allergy (Unverified , 10/26/17) PMhx/Soc History of Surgery: No Anesthesia Reaction: No Hx Neurological Disorder: No Hx Respiratory Disorders: Yes (asthma) Hx Cardiac Disorders: No Hx Psychiatric Problems: No Hx Miscellaneous Medical Probl: No Hx Alcohol Use: Yes Hx Substance Use: No Hx Tobacco Use: No Smoking Status: Never smoker Physical Exam Vitals Vital Signs Date Time Temp Pulse Resp B/P Pulse Ox O2 Delivery O2 Flow Rate FiO2 10/26/17 17:01 98 10/26/17 16:31 90 18 96 21 10/26/17 14:24 98.1 91 18 132/77 96 Physical Exam GENERAL: Well-developed, well-nourished female. Appears in no acute distress. Patient is speaking in full sentences. HEAD: Normocephalic, atraumatic. No deformities or ecchymosis. EYE: Pupils equal, round, and reactive to light. EOMs intact. No conjunctival erythema. No eye discharge. ENT: External ear without any masses or tenderness. Nasal mucosa pink with no discharge. Oropharynx is pink without any tonsillar erythema or exudates. No uvula deviation. No kissing tonsils. NECK: Supple. No meningismus. Normal ROM of the neck. LUNGS: Faint expiratory wheezing noted throughout lung west. No abdominal retractions, nasal flaring, no tripoding. HEART: Regular rate and rhythm. No murmurs, rubs or gallops. EXTREMITES: Equal pulses bilaterally. No peripheral clubbing, cyanosis or edema. No unilateral leg swelling. NEUROLOGIC: Alert and oriented to person, place and time. Moving all four extremities. 5/5 strength in all extremities. Normal speech. Steady gait. SKIN: Normal color. Warm and dry. No rashes or lesions. Results 24 hrs Current Medications Medications (Trade) Dose Ordered Sig/Elle Route PRN Reason Start Time Stop Time Status Last Admin Dose Admin Albuterol (Proventil 0.083% (Neb)) 5 mg ONCE STAT NEB 10/26/17 16:06 10/26/17 16:08 DC 10/26/17 16:29 Ipratropium [place] (Atrovent 0.02% (Neb)) 0.5 mg ONCE STAT NEB 10/26/17 16:06 10/26/17 16:08 DC 10/26/17 16:29 Dexamethasone (Decadron) 10 mg ONCE STAT IM 10/26/17 16:06 10/26/17 16:08 DC 10/26/17 16:14 Procedures/MDM ED COURSE: The patient was stable throughout ED course. I kept the patient and/or family informed of laboratory and diagnostic imaging results throughout the ED course. ED COURSE: The patient was stable throughout ED course. I kept the patient and/or family informed of laboratory and diagnostic imaging results throughout the ED course. EKG: Read by Dr. Schwarz, attending physician. EKG shows normal sinus rhythm at a rate of 75 bpm No arrhythmia or acute ST elevations noted. DIAGNOSTIC IMAGING: Read by radiologist. DIAGNOSTIC IMAGING REPORT Patient: GANESH LARSEN : 1975 Age: 42 Sex: F MR #: [id number] DOS: 10/26/17 1606 Ordering MD: SUDHIR COLE PA-C Location: [facility] Room/Bed: PROCEDURE: XR Chest. CLINICAL INDICATION: chest pain, asthma TECHNIQUE: Single frontal view of the chest was obtained COMPARISON: CR CHEST 02/21/2017 FINDINGS: The heart and mediastinum are within normal limits. There are mild left lower lobe linear atelectatic changes. The lungs are otherwise clear. There is no pleural effusion or pneumothorax. RPTAT: AA IMPRESSION: Mild left lower lobe linear atelectasis. .Vic Fournier MD, Date Time Electronically viewed and signed by .Vic Fournier MD, on 10/26/2017 17: 12 .S/ CC: SUDHIR COLE PA-C PROCEDURES: None. MEDICATIONS GIVEN: Decadron, albuterol, ipratropium breathing treatment. Patient tolerated medication well with no adverse reactions. MEDICAL DECISION MAKING: This is a 42-year-old female with history of asthma presents ED for concerns of cough 3 days. Patient also requesting a refill of albuterol inhaler, Singulair and Claritin. Vital signs were reviewed. Patient was afebrile. Patient was not hypoxic. ENT exam was normal. Lung exam did reveal faint expiratory wheezing bilateral lower lobes. Chest x-ray showed Mild left lower lobe linear atelectasis. Dr. Schwarz reviewed CXR and stated that findings are non significant. EKG showed normal sinus rhythm, reviewed by ED attending Dr. Schwarz. Patient was given a breathing treatment in the ED. Patient was also given Decadron. Upon reexamination, patient had improved breath sounds. Patient felt as if her symptoms had improved significantly. Patient's O2 sat remained above 95% throughout the ED course. Patient's O2 sat was checked by myself and was noted to be 97% prior to discharge. Patient continued to display no signs of abdominal retractions, no nasal flaring or tripoding. Given these findings, the patient's presentation is most consistent with asthma exacerbation likely of viral etiology. Low suspicion for ACS, status asthmaticus, respiratory distress, respiratory failure, CHF, pleural effusion, pneumothorax, pneumonia, meningitis, sinusitis, otitis externa, acute otitis media, strep pharyngitis, epiglottitis or peritonsillar abscess. Patient was nontoxic, [id number] prior to discharge. Patient was stable at time of discharge. PRESCRIPTIONS: Singulair, albuterol inhaler, Claritin, Tessalon Perles DISCHARGE: At this time, patient is stable for discharge and outpatient management. Supportive therapies such as OTC throat lozenges, salt water gurgles, popsicles and jello discussed. I have instructed the patient to follow-up with his/her primary care physician in 1-2 days. I have instructed the patient to promptly return to the ER for any new or worsening symptoms including increased pain, swelling, fever, nausea, vomiting, weakness or difficulty breathing. The patient and/or family expressed understanding of and agreement with this plan. All questions were answered. Home care instructions were provided. Disclaimer: Inadvertent spelling and grammatical errors are likely due to EHR/ dictation software use and do not reflect on the overall quality of patient care. Also, please note that the electronic time recorded on this note does not necessarily reflect the actual time of the patient encounter. Departure Diagnosis: Primary Impression: Asthma with acute exacerbation Asthma severity: mild Asthma persistence: intermittent Qualified Code: J45.21 - Mild intermittent asthma with acute exacerbation Additional Impression: Viral URI with cough Condition: Stable Patient Instructions: Asthma Medications, Asthma, Acute (Adult) Additional Instructions: Call your primary care doctor TOMORROW for an appointment during the next 1-2 days.See the doctor sooner or return here if your condition worsens before your appointment time. SUDHIR COLE PA-C Oct 26, 2017 16:12
--- NOTE | 2017-10-26 17:13 | RADRPT ---
PROCEDURE: XR Chest. CLINICAL INDICATION: chest pain, asthma TECHNIQUE: Single frontal view of the chest was obtained COMPARISON: CR CHEST 02/21/2017 FINDINGS: The heart and mediastinum are within normal limits. There are mild left lower lobe linear atelectatic changes. The lungs are otherwise clear. There is no pleural effusion or pneumothorax. RPTAT: AA IMPRESSION: Mild left lower lobe linear atelectasis. .Vic Fournier MD, MD Date Time Electronically viewed and signed by .Vic Fournier MD, on 10/26/2017 17:12 .S/
[2017-10-26] MEDS ORDERED: ALBU8.5H3 INH (17:22)
[2017-10-26] MEDS ORDERED: MONT10TA21 PO (17:23)
[2017-10-26] MEDS ORDERED: LORA-186 PO (17:23)
[2017-10-26] MEDS ORDERED: BENZ100C70 PO (17:29)
[2017-10-26 17:39] VITALS: BP 136/76; PULSE 92; RESP 18; TEMP 98.1
== END 2017-10-26 17:40 | disposition home or self-care (01) ==
LOC: FTE 14:21
DX: J45.21 Mild intermittent asthma with (acute) exacerbation (principal); J06.9 Acute upper respiratory infection, unspecified; Z76.0 Encounter for issue of repeat prescription
CPT/HCPCS: 71010; 94664; 96372; J1100; Z7502; Z7610

== ENCOUNTER 2017-12-03 23:25 | Emergency (ER) | END 2017-12-04 05:03 | disposition home or self-care (01) ==